=== PATIENT | male | born 1945 | race Asian ===

== ENCOUNTER 2020-02-22 14:36 | Inpatient (IN) | payer OTHER ==
[~2020-02-22] VITALS: Ht 175.3 cm; Wt 71.2 kg
[~2020-02-22 14:36] MED LIST: Acetaminophen 500mg (ES) tab ORAL ONE; Neosporin Oint Ud Pkt TOP ONE; Tetanus/Diptheria/Pertussis IM ONE
[2020-02-22 14:45] VITALS: BP 151/77
--- NOTE | 2020-02-22 14:45 | NUR ---
ED Nurse Note: Patient KATALINA LEVY from street c/o S/P ground level fall. Per EMS, pt fell on his knees and a bystander called 911. Pt is noted with skin abrasion on right hand and right knee. Pt appears to be confused. AAOx2, verbally responsive. Serbian speaking only. No acute distress. Afebrile. Pt placed on cardiac rehab nurse. ERMD at bedside.
--- NOTE | 2020-02-22 14:50 | NUR ---
ED Nurse Note: IV line established. Blood, urine specimen and Covid swab collected and sent to lab.
--- NOTE | 2020-02-22 14:50 | Emergency Room Report ---
History of Present Illness General Chief Complaint: Altered Mental Status Source: Patient, Family Member, EMS Present Illness HPI Patient was found altered on the streets. He knows his name but is confused. He has some cuts on his right hand. They state he has no fever however he feels warm to the touch. Accu-Chek was 142. Apparently he has had a mild cough. He denies nausea, vomiting or diarrhea. He denies dysuria. He is uncertain when his last tetanus shot was. He denies medical problems or taking medications regularly. He denies pain at this time. EKG done in the field shows right bundle branch block but ST depression is fairly significant septally. Additional history is obtained from his . Please see medical decision making. Allergies: Coded Allergies: No Known Allergies (Unverified , 02/22/20) Patient History Limited by: medical condition - patient with dementia Past Medical History: see triage record Social History: Denies: smoking, alcohol use, drug use Social History Narrative Reviewed Nursing Documentation: PMH: Agreed; PSxH: Agreed Nursing Documentation-PMH Past Medical History: No Stated History Review of Systems All Other Systems: negative except mentioned in HPI - patient with dementia Physical Exam Vital Signs Date Time Temp Pulse Resp B/P (MAP) Pulse Ox O2 Delivery O2 Flow Rate FiO2 02/22/20 14:45 118 24 Room Air 02/22/20 14:45 98.8 151/77 100 Sp02 EP Interpretation: reviewed, normal General Appearance: thin, other - Week Head: normocephalic, atraumatic Eyes: bilateral eye normal inspection, bilateral eye PERRL, bilateral eye EOMI ENT: other - Mask Neck: full range of motion, supple Respiratory: chest non-tender, lungs clear, other - Slightly tachypneic Cardiovascular #1: tachycardia Cardiovascular #2: 2+ radial (L) Gastrointestinal: non tender, soft, scaphoid Musculoskeletal: back normal, normal range of motion Neurologic: mattress stripper III-XII nml as tested, oriented - X2, sensory intact, cerebellar normal, motor weakness - Diffuse Psychiatric: mood/affect normal Skin: warm/dry, abrasion - Right hand Procedures Critical Care Time Critical Care Time Total Critical Care Time: 90 min bedside evaluation and treatment excludes procedures (EKG). Reason for critical care: NSTEMI, sepsis, UTI, additional history from , re- evaluations, alkalinization of urine, non-violent restraints and evaluation Possible complications: hypotension, hypertension, [place], shock, arrhythmias, metabolic acidosis, end organ damage, respiratory failure. Interventions: aspirin, antibiotics, fluids, alkalinization of urine, treatment of NSTEMI Course: Patient presented with altered level of consciousness. Evaluation led to diagnosis of sepsis from urinary source. Treatment with hydration ration and antibiotics. Positive troponin treated with aspirin initially. Later also treated with Lovenox, nitro paste, metoprolol. Sepsis reevaluation with improvement. Alternate history obtained from . Renal failure and elevated CK treated with alkalinization. Antibiotics broadened. Reevaluation is patient pulling out IV and noncompliant with care. Non-violent restraints applied. Consultations: nursing staff, EMS, family, admitting physician, HMO Performed by: Dr. Mccormack Tolerated well condition = serious Medical Decision Making Diagnostic Impression: Primary Impression: Altered mental status Qualified Codes: R41.82 - Altered mental status, unspecified Additional Impressions: Acute renal failure Qualified Codes: N17.9 - Acute kidney failure, unspecified NSTEMI (non-ST elevated myocardial infarction) UTI (urinary tract infection) Qualified Codes: N39.0 - Urinary tract infection, site not specified Rhabdomyolysis Sepsis Qualified Codes: A41.9 - Sepsis, unspecified organism; R65.20 - Severe sepsis without septic shock ER Course Patient presents with altered level of consciousness, tachycardia and possible cough. Differential includes COVID-19, acute myocardial infarction, head injury or bleed, electrolyte imbalance including dehydration, hypothyroidism, rhabdomyolysis amongst others. Evaluation with EKG, chest x-ray, CT of the head and labs included COVID-19 testing. Treatment with IV hydration, tetanus, Neosporin, Tylenol. EKG sinus tachycardia rate 106 with right bundle branch block. This is some improved from the EKG done in the field. Called for + troponin. Aspirin ordered. Consider heparin if negative CT. here. She states the patient has a history of dementia. He has had this for a year and is taking medication for this. He also has a history of hypertension and takes some medication twice a day. According to her he appears to be baseline at this time. Sepsis re-evaluation: HR improved. Good cap fill. Adding gentamycin. Mentation unchanged. Elevated CK. Alkalinizing urine with bicarb. Patient pulling out IVs. Non-violent restraints ordered. Lovenox, metoprolol ordered for NSTEMI. Contact Dr. Marcial for admission. Discussed with HMO. Laboratory Tests Test 02/22/20 14:45 02/22/20 15:10 02/22/20 15:45 02/22/20 16:10 White Blood Count 13.8 K/UL (4.8-10.8) H Red Blood Count 4.00 M/UL (4.70-6.10) L Hemoglobin 13.2 G/DL (14.2-18.0) L Hematocrit 37.3 % (42.0-52.0) L Mean Corpuscular Volume 93 FL (80-99) Mean Corpuscular Hemoglobin 33.1 PG (27.0-31.0) H Mean Corpuscular Hemoglobin Concent 35.5 G/DL (32.0-36.0) Red Cell Distribution Width 11.1 % (11.6-14.8) L Platelet Count 192 K/UL (150-450) Mean Platelet Volume 4.8 FL (6.5-10.1) L Neutrophils (%) (Auto) 77.8 % (45.0-75.0) H Lymphocytes (%) (Auto) 11.7 % (20.0-45.0) L Monocytes (%) (Auto) 10.0 % (1.0-10.0) Eosinophils (%) (Auto) 0.0 % (0.0-3.0) Basophils (%) (Auto) 0.5 % (0.0-2.0) Prothrombin Time 11.1 SEC (9.30-11.50) Prothrombin Time INR 1.0 (0.9-1.1) Activated Partial Thromboplast Time 24 SEC (23-33) Sodium Level 146 MMOL/L (136-145) H Potassium Level 4.0 MMOL/L (3.5-5.1) Chloride Level 108 MMOL/L (98-107) H Carbon Dioxide Level 23 MMOL/L (21-32) Anion Gap 15 mmol/L (5-15) Blood Urea Nitrogen 52 mg/dL (7-18) H Creatinine 3.0 MG/DL (0.55-1.30) H Estimated Glomerular Filtration Rate 20.5 mL/min (>60) Glucose Level 139 MG/DL (74-106) H Lactic Acid Level 4.50 mmol/L (0.4-2.0) H 2.60 mmol/L (0.66-2.22) H Calcium Level 9.0 MG/DL (8.5-10.1) Magnesium Level 2.4 MG/DL (1.8-2.4) Ferritin 160 NG/ML (8-388) Total Bilirubin 1.9 MG/DL (0.2-1.0) H Direct Bilirubin 0.3 MG/DL (0.0-0.3) Aspartate Amino Transferase (AST) 177 U/L (15-37) H Alanine Aminotransferase (ALT) 45 U/L (12-78) Alkaline Phosphatase 57 U/L (46-116) Lactate Dehydrogenase 338 U/L (81-234) H Total Creatine Kinase 7559 U/L (26-308) H Troponin I 0.122 ng/mL (0.000-0.056) C-Reactive Protein, Quantitative 2.2 mg/dL (0.00-0.90) H Pro-B-Type Natriuretic Peptide 1156 pg/mL (0-125) H Total Protein 7.7 G/DL (6.4-8.2) Albumin 4.1 G/DL (3.4-5.0) Globulin 3.6 g/dL Albumin/Globulin Ratio 1.1 (1.0-2.7) Lipase 107 U/L (73-393) Thyroid Stimulating Hormone (TSH) 0.704 uiU/mL (0.358-3.740) Urine Color Yellow Urine Appearance Slightly cloudy Urine pH 5 (4.5-8.0) Urine Specific [place] 1.025 (1.005-1.035) Urine Protein 2+ (NEGATIVE) H Urine Glucose (UA) Negative (NEGATIVE) Urine Ketones 1+ (NEGATIVE) H Urine Blood 5+ (NEGATIVE) H Urine Nitrite Negative (NEGATIVE) Urine Bilirubin 1+ (NEGATIVE) H Urine Ictotest Negative (NEGATIVE) Urine Urobilinogen 1 MG/DL (0.0-1.0) H Urine Leukocyte Esterase 1+ (NEGATIVE) H Urine RBC 15-20 /HPF (0 - 0) H Urine WBC 5-10 /HPF (0 - 0) H Urine Squamous Epithelial Cells Occasional /LPF Urine Bacteria Moderate /HPF (NONE) H Urine Granular Casts 0-2 /LPF (NONE) H Urine Opiates Screen Negative (NEGATIVE) Urine Barbiturates Screen Negative (NEGATIVE) Phencyclidine (PCP) Screen Negative (NEGATIVE) Urine Amphetamines Screen Negative (NEGATIVE) Urine Benzodiazepines Screen Negative (NEGATIVE) Urine Cocaine Screen Negative (NEGATIVE) Urine Marijuana (THC) Screen Negative (NEGATIVE) D-Dimer 0.66 mg/L FEU (0.00-0.49) H EKG Diagnostic Results Rate: normal Rhythm: NSR ST Segments: no acute changes - Right bundle branch block Rhythm Strip Diag. Results EP Interpretation: yes Rhythm: no PVC's, no ectopy, other - Sinus tachycardia Chest X-Ray Diagnostic Results Chest X-Ray Diagnostic Results : Chest X-Ray Ordered: Yes # of Views/Limited/Complete: 1 View Indication: Other EP Interpretation: Yes Interpretation: no consolidation, no effusion, no pneumothorax, other - atelectasis Impression: Other Electronically Signed by: Electronically signed by Alber Mccormack MD CT/MRI/US Diagnostic Results CT/MRI/US Diagnostic Results : Imaging Test Ordered: Head Impression 1. No acute intracranial findings. 2. Mild periventricular white matter hypodensities, likely related to chronic small vessel disease changes. 3. 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 4. Generalized cerebral parenchymal volume loss, likely age-related. Last Vital Signs Date Time Temp Pulse Resp B/P (MAP) Pulse Ox O2 Delivery O2 Flow Rate FiO2 02/23/20 00:00 97.7 111 22 130/95 (107) 99 02/22/20 21:15 Room Air Status: improved Disposition: ADMITTED INPATIENT Condition: Serious Alber Mccormack MD February 22, 2020 14:50
--- NOTE | 2020-02-22 15:00 | NUR ---
ED Nurse Note: Placed patient's money (total $3400) and placed in safe. Record valuables [facility] # [id number]. Placed copy in his chart and wallet.
--- NOTE | 2020-02-22 15:04 | NUR ---
ED Nurse Note: [employer] contacted family member (daughter) Zachery Cruz @ [phone] and neighbor, Charisma Srini @ [phone].
--- NOTE | 2020-02-22 15:06 | NUR ---
ED Nurse Note: Pt was taken to CT via breezy, accompanied by a tech.
[2020-02-22 15:11] LABS: BASOPHILS % (AUTO) 0.5 % (0.0-2.0); HEMATOCRIT 37.3 % (42.0-52.0); HEMOGLOBIN 13.2 G/DL (14.2-18.0); LYMPHOCYTES % (AUTO) 11.7 % (20.0-45.0); MEAN CORPUSCULAR VOLUME 93 FL (80-99); NEUTROPHILS % (AUTO) 77.8 % (45.0-75.0); PLATELET COUNT 192 K/UL (150-450); RED CELL DISTRIBUTION WIDTH 11.1 % (11.6-14.8); WHITE BLOOD COUNT 13.8 K/UL (4.8-10.8)
--- NOTE | 2020-02-22 15:20 | NUR ---
ED Nurse Note: Pt returned from CT, not in any distress.
[2020-02-22 15:22] LABS: ANION GAP 15 mmol/L (5-15); BLOOD UREA NITROGEN 52 mg/dL (7-18); CARBON DIOXIDE 23 MMOL/L (21-32); CHLORIDE 108 MMOL/L (98-107); SODIUM 146 MMOL/L (136-145)
[2020-02-22 15:27] LABS: APPEARANCE,URINE SLIGHTLY CLOUDY; BILIRUBIN, URINE 1+ (NEGATIVE); GLUCOSE, URINE (UA) NEGATIVE (NEGATIVE); KETONES,URINE 1+ (NEGATIVE); LEUKOCYTE ESTERASE ,URINE 1+ (NEGATIVE); NITRITE,URINE NEGATIVE (NEGATIVE); PH,URINE 5 (4.5-8.0); PROTEIN,URINE 2+ (NEGATIVE); UROBILINOGEN,URINE 1 MG/DL (0.0-1.0)
[2020-02-22 15:40] LABS: ALANINE AMINOTRANSFERASE 45 U/L (12-78); ALBUMIN 4.1 G/DL (3.4-5.0); ALBUMIN/GLOBULIN RATIO 1.1 (1.0-2.7); ALKALINE PHOSPHATASE 57 U/L (46-116); ASPARTATE AMINO TRANSFERASE 177 U/L (15-37); BILIRUBIN,TOTAL 1.9 MG/DL (0.2-1.0); FERRITIN 160 NG/ML (8-388); LACTATE DEHYDROGENASE 338 U/L (81-234)
[2020-02-22 15:45] LABS: COLOR,URINE YELLOW
[2020-02-22 15:55] LABS: CREATINE KINASE 7559 U/L (26-308)
[2020-02-22 15:56] LABS: BILIRUBIN,DIRECT 0.3 MG/DL (0.0-0.3)
[2020-02-22] MEDS ORDERED: cefTRIAXone 1 GM in NS 55 ML IVPB ONE (16:00)
[2020-02-22] MEDS ORDERED: Nitroglycerin 2% oint pkt TOPIC ONE (16:00)
[2020-02-22] MEDS ORDERED: Aspirin Baby 81mg ORAL ONE (16:00)
--- NOTE | 2020-02-22 16:47 | Diagnostic Imaging Report ---
EXAM: CT Head Without Intravenous Contrast CLINICAL HISTORY: ALOC TECHNIQUE: Axial computed tomography images of the head/brain without intravenous contrast. Coronal reformatted images were obtained and reviewed. CTDI is 53.40 mGy and DLP is 1152.40 mGy-cm. One or more of the following dose reduction techniques were used: automated exposure control, adjustment of the mA and/or kV according to patient size, use of iterative reconstruction technique. COMPARISON: No relevant prior studies available. FINDINGS: Brain: Generalized parenchymal volume loss, likely age-related. Mild periventricular white matter hypodensities. 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 No evidence of acute intracranial hemorrhage. No mass effect or midline shift. Ventricles: Unremarkable. No ventriculomegaly. Bones/joints: Unremarkable. No acute fracture. Soft tissues: Unremarkable. Sinuses: Unremarkable as visualized. No acute sinusitis. Mastoid air cells: Unremarkable as visualized. No mastoid effusion. Vascular: Atherosclerotic calcifications of bilateral vertebral arteries and the cavernous portions of bilateral ICAs. IMPRESSION: 1. No acute intracranial findings. 2. Mild periventricular white matter hypodensities, likely related to chronic small vessel disease changes. 3. 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 4. Generalized cerebral parenchymal volume loss, likely age-related.
--- NOTE | 2020-02-22 16:51 | Diagnostic Imaging Report ---
EXAM: XR Chest, 1 View CLINICAL HISTORY: ALOC TECHNIQUE: Frontal view of the chest. COMPARISON: No relevant prior studies available. FINDINGS: Lungs: Subsegmental atelectasis in the medial lung bases. The lungs are otherwise clear. Pleural space: Unremarkable. The costophrenic angles are sharp. No visible pneumothorax. Heart: Unremarkable. No cardiomegaly. Mediastinum: Unremarkable. Bones/joints: Unremarkable. Vasculature: Atherosclerotic calcifications are noted within the aortic arch. Tubes, lines and devices: Telemetry leads overlie the thorax. IMPRESSION: Subsegmental atelectasis in the medial lung bases.
[2020-02-22 17:00] VITALS: BP 150/76
[2020-02-22] MEDS ORDERED: Enoxaparin 80mg Inj SUBQ STA (18:24)
[2020-02-22] MEDS ORDERED: Metoprolol Tartrate 5mg/5ml Inj IVP STA (18:24)
[2020-02-22 18:29] VITALS: BP 165/89
[2020-02-22] MEDS ORDERED: LOSARTAN POTASS50 MG ORAL (18:41)
[2020-02-22] MEDS ORDERED: AMLODIPINE BESYL5 MG ORAL (18:41)
[2020-02-22] MEDS ORDERED: Sodium Bicarbonate 100 ML in D5W 1000ml 1,000 ML IV SCH (18:45)
--- NOTE | 2020-02-22 19:12 | NUR ---
HAND-OFF: Report given to Kristen LANTIGUA.
--- NOTE | 2020-02-22 19:13 | NUR ---
ED Nurse Note: Received report from RHINA Valladares. Patient in bed, no acute distress noted.
--- NOTE | 2020-02-22 19:20 | NUR ---
ED Nurse Note: pt home meds in ED patient medication box, ticket # [id number]
[2020-02-22 19:34] VITALS: BP 130/64
[2020-02-22] MEDS ORDERED: Sodium Bicarbonate 50ml Carp ONE (20:30)
[2020-02-22] MEDS: Sodium Bicarbonate 100 ML in D5W 1000ml 1,000 ML IV SCH ×3 (20:32→21:40)
--- NOTE | 2020-02-22 21:00 | NUR ---
ED Nurse Note: Sodium bicarb 100ml override in pyxis and mixed with D5 as ordered, first bag is running at this time. No need for second order. Spoke with pharmacy, pharmacy noted to waste medication and undo on eMAR.
--- NOTE | 2020-02-22 21:04 | NUR ---
ED Nurse Note: Report given to RHINA Cavazos in tele.
--- NOTE | 2020-02-22 21:15 | NUR ---
TRANSFER TO FLOOR: Patient transferred to telemetry as ordered, per ERMD. Report given to RHINA Cavazos. Patient transported via gurney on ACLS protocol on tapper operator accompanied by 1 RN and senior quality technician in stable condition.
[2020-02-22 21:30] VITALS: BP 165/100
--- NOTE | 2020-02-22 21:30 | NUR ---
NURSE NOTES: Received report form Lilly Leyva from brought up from ER- pt. in bed awake- appears to be agitated- trying to pull on devices and trying to climb out of bed, pt. appears to be A/O x's1 to name- appears to be confused, awake overnight monitor placed multiple times as pt. is trying to remove monitor, VS taken full body assessment done- Skin appears to be intact- Rt. hand abrasion noted, pt. appears to be sating well on room air at 98%- no distress noted, pt. is incontinent and refusing to have condom cath placed, Pt. has rt. AC 20G intact and patent- pt. has LFA 18G- but appears to be leaking- as pt. pulled on IV- will remove, will continue to monitor pt. and with plan of care. Addendum: 02/23/20 at 0132 by JUAN MCLEOD RN RN pt. is Danish speaking- Danish nurse Lane tried translating- but pt. not making sense- but able to name self.
--- NOTE | 2020-02-22 22:08 | NUR ---
NURSE NOTES: Left message for DR. Marcial,for admission orders- awaiting for call back from doctor.
--- NOTE | 2020-02-22 22:10 | NUR ---
NURSE NOTES: received orders from DR. Marcial- will carry out orders and continue home meds as ordered.
--- NOTE | 2020-02-22 22:26 | NUR ---
NURSE NOTES: left message for DR. Marcial pt. appears to be very agitated- removed bilateral soft wrist restraints and walked out of room- pt. is a PUI for rule out Covid. Gait noted to be unsteady- awaiting for call back from doctor
--- NOTE | 2020-02-22 23:26 | NUR ---
NURSE NOTES: Left message again for DR. Marcial as pt. is very agitated trying to climb out of bed- awaiting for call back from doctor.
[2020-02-22] MEDS: Piperacillin/Tazobactam 3.375 GM in NS 110 ML IVPB SCH (23:54)
[2020-02-23] VITALS: BP 130/95
--- NOTE | 2020-02-23 | NUR ---
NURSE NOTES: bilateral wrist restraints removed- skin intact and pulses palpable- oral care provided- repositioned and turned pt.- will continue to monitor pt. and with plan of care.
--- NOTE | 2020-02-23 01:32 | NUR ---
NURSE NOTES: pt. appears to be resting comfortably- no distress noted
[2020-02-23 02:32] LABS: BASOPHILS % (AUTO) 0.5 % (0.0-2.0); EOSINOPHILS % (AUTO) 0.1 % (0.0-3.0); HEMATOCRIT 34.9 % (42.0-52.0); HEMOGLOBIN 12.5 G/DL (14.2-18.0); LYMPHOCYTES % (AUTO) 13.5 % (20.0-45.0); MEAN CORPUSCULAR VOLUME 93 FL (80-99); MONOCYTES % (AUTO) 13.3 % (1.0-10.0); NEUTROPHILS % (AUTO) 72.7 % (45.0-75.0); PLATELET COUNT 157 K/UL (150-450); RED BLOOD COUNT 3.74 M/UL (4.70-6.10); RED CELL DISTRIBUTION WIDTH 11.3 % (11.6-14.8); WHITE BLOOD COUNT 13.1 K/UL (4.8-10.8)
[2020-02-23 02:50] LABS: CHOLESTEROL 127 MG/DL (< 200); HDL CHOLESTEROL 57 MG/DL (40-60); TRIGLYCERIDES 84 MG/DL (30-150)
[2020-02-23 02:57] LABS: ALANINE AMINOTRANSFERASE 44 U/L (12-78); ALBUMIN 3.3 G/DL (3.4-5.0); ALBUMIN/GLOBULIN RATIO 1.1 (1.0-2.7); ALKALINE PHOSPHATASE 55 U/L (46-116); ANION GAP 10 mmol/L (5-15); ASPARTATE AMINO TRANSFERASE 243 U/L (15-37); BILIRUBIN,TOTAL 1.9 MG/DL (0.2-1.0); BLOOD UREA NITROGEN 29 mg/dL (7-18); CALCIUM 8.4 MG/DL (8.5-10.1); CARBON DIOXIDE 29 MMOL/L (21-32); CHLORIDE 109 MMOL/L (98-107); CREATINE KINASE > 10000 U/L (26-308); CREATININE 1.3 MG/DL (0.55-1.30); PHOSPHORUS 2.4 MG/DL (2.5-4.9); POTASSIUM 3.7 MMOL/L (3.5-5.1); SODIUM 148 MMOL/L (136-145)
--- NOTE | 2020-02-23 03:24 | NUR ---
NURSE NOTES: left message for DR. street- regarding critical value- patients Troponin trending up- awaiting for call back from doctor.
[2020-02-23 03:32] LABS: BILIRUBIN,DIRECT 0.3 MG/DL (0.0-0.3)
[2020-02-23 04:00] VITALS: BP 137/73
--- NOTE | 2020-02-23 04:29 | Consultation ---
DATE OF CONSULTATION: 02/22/2020 CARDIOLOGY CONSULTATION CONSULTING PHYSICIAN: Alber Kirk MD REQUESTING PHYSICIAN: Ruben Marcial MD REASON FOR CONSULTATION: Elevated troponin level. HISTORY OF PRESENT ILLNESS: This is a 74-year-old Khmer male. He was found on the street confused, oriented only to his name. He apparently suffered some lacerations to his right hand although he does not know how. He complained of some coughing and congestion. He did not have any other detailed history. There was no complaint of chest pain or shortness of breath. He was seen in the emergency room. I have been asked to assist with cardiovascular care. ALLERGIES: None. MEDICATIONS: Prior to admission, unknown. PAST MEDICAL HISTORY: Otherwise, not available. He denies smoking, alcohol or substance abuse, but reliability of his stated information is poor. PHYSICAL EXAMINATION: VITAL SIGNS: In the emergency room, blood pressure 151/77, pulse 118, respiratory rate 24, afebrile. HEENT: Oropharynx, clear. Conjunctivae pink. Sclerae are anicteric. NECK: Supple. LUNGS: Clear. CARDIAC: Regular rhythm. Rapid rate. Normal S1, S2 with no murmur. ABDOMEN: Soft. EXTREMITIES: There is no edema. Right hand with dressing noted. LABORATORY AND DIAGNOSTIC DATA: EKG reveals sinus rhythm, right bundle-branch block, subtle ST depression. Troponin is 0.120. Natriuretic peptide is 1156. Sodium 146, potassium 4, bicarb 23, BUN 52, creatinine 3. CK is 7500. White count 13.8, hemoglobin 13.2. IMPRESSION: 1. Hypovolemia. 2. Dehydration. 3. Acute myocardial ischemia. 4. Rhabdomyolysis. 5. Possible COVID-19 infection. 6. Acute renal failure. PLAN: 1. Cardiac monitoring. 2. DVT prophylaxis. 3. Beta-blockade. 4. Aggressive hydration. 5. COVID-19 swab. 6. Isolation. 7. Anti-platelet therapy. 8. Skin care. 9. Follow up lab studies. Alber Kirk M.D. DR: TRINY JOB#: [id number] CC:
[2020-02-23] MEDS: Vancomycin 1.25gm/NS Premix q24h IVPB SCH (04:34)
--- NOTE | 2020-02-23 05:30 | NUR ---
NURSE NOTES: bilateral wrist restraints removed- skin intact and pulses palpable- oral care provided- repositioned and turned pt.-bed bath given and linens changed- will continue to monitor pt. and with plan of care.
--- NOTE | 2020-02-23 06:20 | NUR ---
NURSE NOTES: per dr. Edwin engel to put orders for sitter and order Ativan 1mg Q4hrs prn agitation- orders carried out.
[2020-02-23] MEDS ORDERED: LORazepam Inj 2mg/ml 1ml IV PRN (06:30)
--- NOTE | 2020-02-23 07:03 | NUR ---
HAND-OFF: Report given to Lilly Pantoja pt. remains stable and no signs of distress noted. Nurse aware to f/u with DR. Kirk regarding Troponin trending up/ EKG done am and abnormal am labs.
--- NOTE | 2020-02-23 07:35 | NUR ---
NURSE NOTES: Received report from RHINA Hurd. Patient in bed resting, no active s/s cardiac, respiratory distress noticed at this time. Endorsed sitter order, Ketan is coming. At this time, bilateral wrist restraints, cap refill <3 sec, able to move. IVF running as prescribed rate. Bed in lowest position, side rails upx2, call light within reach, bed alarm on. Will continue to monitor.
[2020-02-23 08:00] VITALS: BP 111/69
[2020-02-23] MEDS: Piperacillin/Tazobactam 3.375 GM in NS 110 ML IVPB SCH ×2 (08:51→16:56)
[2020-02-23] MEDS: Aspirin Baby 81mg ORAL SCH (08:51)
[2020-02-23] MEDS: Heparin 5000 units/ml inj SUBQ SCH ×2 (08:53→21:45)
[2020-02-23] MEDS ORDERED: Losartan 50mg tab ORAL SCH (09:00)
--- NOTE | 2020-02-23 10:20 | NUR ---
*-* NO INSURANCE INFORMATION IN THE BAR UNABLE TO SEND CLINICALS OR REVIEWS *-*
--- NOTE | 2020-02-23 10:42 | NUR ---
CASE MANAGEMENT:REVIEW 74 YR OLD MALE BIBA FROM STRE[address] [facility]; BYSTANDER CALLED 911. FALL. CONFUSED SI: AMS. ACUTE RENAL FAILURE. RHABDO. UTI. NSTEMI 98.8 118 24 151/77 100% ON RA WBC+13.8 D-DIMER+0.66 BUN+52 CR+3.0 TROPONIN(+)0.122 TCK+7559 IS:1L NS BOLUS IV ROCEPHIN ASA PO IV GENTAMICIN LOVENOX SQ IV METOPROLOL IV NAHCO3 COVID [address] HEAD CHEST XRAY BLOOD CX : TO TELEMETRY DCP; SOCIAL SERVICE CONSULT
[2020-02-23 11:53] LABS: ALANINE AMINOTRANSFERASE 50 U/L (12-78); ALBUMIN 3.4 G/DL (3.4-5.0); ALBUMIN/GLOBULIN RATIO 1.1 (1.0-2.7); ALKALINE PHOSPHATASE 55 U/L (46-116); ANION GAP 10 mmol/L (5-15); ASPARTATE AMINO TRANSFERASE 250 U/L (15-37); BILIRUBIN,TOTAL 2.1 MG/DL (0.2-1.0); BLOOD UREA NITROGEN 20 mg/dL (7-18); CALCIUM 8.5 MG/DL (8.5-10.1); CARBON DIOXIDE 27 MMOL/L (21-32); CHLORIDE 107 MMOL/L (98-107); POTASSIUM 3.8 MMOL/L (3.5-5.1); SODIUM 144 MMOL/L (136-145)
[2020-02-23 12:00] VITALS: BP 152/76
[2020-02-23 12:05] LABS: BILIRUBIN,DIRECT 0.3 MG/DL (0.0-0.3)
--- NOTE | 2020-02-23 14:00 | NUR ---
NURSE NOTES: Dr. Kirk made aware patient HR fluctuate, during the night HR 110s, after morning med, amlodipine, metoprolol, HR 50s, junctional. No new order received at this time. Will continue to monitor.
--- NOTE | 2020-02-23 15:30 | NUR ---
NURSE NOTES: Paged Dr. Marcial regarding right hand laceration, swallowen. Per MD, consult with Dr. Chew. Order noted, entered, carried out. Will continue to monitor.
[2020-02-23 16:00] VITALS: BP 155/81
[2020-02-23] MEDS: Potassium Chloride 20 MEQ in 1/2 NS 1000ml 1,000 ML IV SCH (16:56)
--- NOTE | 2020-02-23 16:56 | NUR ---
*-* INSURANCE *-* ALL CLINICALS AND REVIEWS HAVE BEEN FAXED TO: [facility] Ref#[id number] # [phone] fax#[phone]
--- NOTE | 2020-02-23 17:28 | NUR ---
NURSE NOTES: Per Dr. Rodríguez, change ativan to haldol IM 5mg q 6h prn for agitation. Order noted, entered, carried out. Will continue to monitor.
--- NOTE | 2020-02-23 17:44 | Consultation ---
DATE OF CONSULTATION: 02/23/2020 INFECTIOUS DISEASES CONSULTATION CONSULTING PHYSICIAN: Makenna Figueroa MD. REFERRING PHYSICIAN: Ruben Marcial MD. REASON FOR CONSULTATION: To rule out COVID-19 pneumonia HISTORY OF PRESENTING ILLNESS: This is a 74-year-old gentleman with unknown past medical history, who comes in with cough and congestion. There was a concern for COVID-19 pneumonia and an Infectious Diseases consultation has been obtained for antibiotics. PAST MEDICAL HISTORY: Unknown. FAMILY HISTORY: Unknown. REVIEW OF SYSTEMS: Unable to obtain currently. MEDICATIONS: As an inpatient he is on aspirin, subcutaneous heparin, Protonix, amlodipine, metoprolol, lorazepam, IV vancomycin, Zosyn, Tylenol, Mylanta, clonidine. ALLERGIES: No known drug allergies. PHYSICAL EXAMINATION: VITAL SIGNS: Temperature of 97.3, T-max of 98.8, pulse of 83, respiratory rate 20, blood pressure 111/69, O2 saturation of 95% on 2 liters of oxygen. Examination deferred due to possibility of COVID-19. LABORATORY AND DIAGNOSTIC DATA: White count 13.1, hemoglobin 12.5, hematocrit 34.9, MCV 93, platelet count of 157. Sodium 144, potassium 3.8, chloride 107, bicarb 27, BUN 20, creatinine 1, glucose 111, calcium 8.5. Total bilirubin 2.1, direct bilirubin 0.3, AST , ALT 50, alkaline phosphatase 55. CK more than 10,000. Troponin 0.173. Total protein 6.6, albumin 3.4. UA showing 5 to 10 white cells. Urine cultures are negative. Chest x-ray is showing subsegmental atelectasis in the lung bases. CT head showing no acute intracranial findings, mild periventricular white matter hypodensity, lacunar infarcts noted. ASSESSMENT: This is a 74-year-old gentleman with unknown past medical history who comes in with cough and congestion would be concern. 1. Regarding COVID-19 pneumonia. 2. Myocardial infarction. 3. Renal failure. PLAN: 1. We will start the patient on ceftriaxone. 2. We will continue isolation. 3. We will follow up on COVID-19 results. I would like to thank, Dr. Marcial for this consultation. Makenna Figueroa M.D. DR: Ilda JOB#: [id number] CC: Ruben Marcial M.D.; Fax#: [phone]
--- NOTE | 2020-02-23 19:48 | NUR ---
HAND-OFF: Report given to RHINA Kulkarni. Endorsed plan of care.
--- NOTE | 2020-02-23 19:50 | NUR ---
NURSE NOTES: rECEIVED PT FROM RHINA Lozano. PT ASLEEP. BED IN LOWEST POSITION. CALL LIGHT WITHIN REACH. WILL CONTINUE TO MONITOR.
--- NOTE | 2020-02-23 19:59 | History and Physical Report ---
DATE OF ADMISSION: 02/22/2020 REASON FOR ADMISSION: Toxic metabolic encephalopathy, rhabdomyolysis, hypernatremia, acute renal failure, possible non-STEMI. HISTORY: This is a 74-year-old male, very agitated, very confused, presented through the emergency room. The patient was found on the street confused, only oriented to name. At present, the patient is agitated, requiring restraints. Further history is difficult to obtain. Emergency room visit reviewed. Cardiology and Renal called. PAST MEDICAL HISTORY: Not available at this time. MEDICATIONS: Not available. ALLERGIES: Not available. FAMILY HISTORY: Not available. PHYSICAL EXAMINATION: GENERAL: An agitated male. VITAL SIGNS: Reviewed, otherwise stable. Saturation 97% on 2 liters. HEENT: Negative. NECK: Supple. LUNGS: Moderate breath sounds. CARDIAC: S1, S2. Regular rate and rhythm. ABDOMEN: Soft. EXTREMITIES: Mild edema. LABORATORY DATA: Reviewed. Sodium 148. CK is greater than 10,000. Troponin 0.173. Albumin 3.3. White count 13, hemoglobin 12.5, hematocrit 34, platelets 157. IMPRESSION: 1. Hypernatremia. 2. Rhabdomyolysis. 3. Possible non-STEMI. 4. Toxic metabolic encephalopathy. 5. Possible sepsis, unclear at this time. 6. Dehydration. 7. Acute renal failure. RECOMMENDATIONS: 1. Supportive care. 2. Hypotonic fluids. 3. Renal to follow. 4. Follow up CTA. 5. Follow up labs. 6. Blood pressure support. 7. Cardiology evaluation. 8. Follow up cultures. 9. Monitor neurological examination. 10. Ativan p.r.n. and assess for further change in interventions. 11. Await case management to assist in his finding family. Ruben Marcial M.D. DR: Mitali JOB#: [id number] CC:
[2020-02-23 20:00] VITALS: BP 140/71
--- NOTE | 2020-02-23 20:14 | Consultation ---
DATE OF CONSULTATION: 02/23/2020 CONSULTING PHYSICIAN: Darron Ren M.D. REFERRING PHYSICIAN: Ruben Marcila M.D. REASON FOR CONSULTATION: Acute kidney injury and rhabdomyolysis. HISTORY OF PRESENT ILLNESS: Patient is a 74-year-old [place] male, apparently found confused on the streets with some lacerations of his right hand and unable to give an adequate history. He presented with abnormal labs and I adjusted his IV fluids last night. I am unable to get any detailed history. PHYSICAL EXAMINATION: GENERAL: The patient is lying in bed, eyes open, but not interacting. VITAL SIGNS: Temperature 96.9, pulse 58, respiratory rate 18, blood pressure 152/76. HEAD, EYES, EARS, NOSE, AND THROAT: Oral mucosa is slightly dry. Sclerae are nonicteric. LUNGS: Clear. HEART: Regular rhythm. ABDOMEN: Soft. No organomegaly. EXTREMITIES: No edema. There is a dressing in the right hand. NEUROLOGIC: He is confused, disoriented with little interaction, not speaking at this time. LABORATORY AND DIAGNOSTIC DATA: Review of pertinent labs on admission, BUN 52, creatinine 3, sodium 146, potassium 4, chloride 108, CO2 23, glucose 139, lactic acid 4.5 and 2.6, magnesium 2.4. Bilirubin 1.9, direct bilirubin 0.3, AST 177, LDH 338, and a CK of 7559. Troponin 0.122. TSH 0.704. Most recent BUN 20 and creatinine is 1. Bilirubin 2.1 and CK greater than 10,000. Albumin is 3.4. The I and O for the past 24 hours is not recorded. He is incontinent. Imaging with a chest x-ray showed subsegmental atelectasis. A CT brain was done showing no acute intracranial findings, mild periventricular white matter hypodensities, and lacunar infarcts. IMPRESSION: 1. Acute kidney injury, likely from dehydration. 2. Rhabdomyolysis. 3. Proteinuria, possibly from rhabdomyolysis. 4. History of multiple lacunar infarcts. 5. Dementia. 6. Lactic acidosis, rule out sepsis. 7. Incomplete database. PLAN: The patient will continue with vigorous hydration, empiric antibiotics. Watch closely in view of his comorbidities. Darron Ren M.D. DR: Tim JOB#: [id number] CC:
[2020-02-24] VITALS: BP 134/80
[2020-02-24] MEDS: Piperacillin/Tazobactam 3.375 GM in NS 110 ML IVPB SCH ×4 (00:11→23:28)
[2020-02-24] MEDS: Potassium Chloride 20 MEQ in 1/2 NS 1000ml 1,000 ML IV SCH ×4 (00:12→23:35)
[2020-02-24 04:00] VITALS: BP 130/72
--- NOTE | 2020-02-24 04:45 | Consultation ---
DATE OF CONSULTATION: 02/23/2020 HISTORY OF PRESENT ILLNESS: The patient is a 74-year-old male with a history of multiple medical problems including UTI, acute renal failure, rhabdomyolysis, non-ST elevated myocardial infarction, who was admitted to the hospital for medical stabilization. The patient has COVID-19. The patient became agitated and walked down the corridor and went down the stairway. The patient was brought back to the room. He was confused, agitated, and was placed on bilateral soft restraints. PAST PSYCHIATRIC HISTORY: The patient continues with dementia. PAST MEDICAL HISTORY: Unknown. It appears that the patient has a history of possible dementia. ALLERGIES: No known drug allergies. SUBSTANCE ABUSE HISTORY: No known history of illicit drug use or alcohol. MENTAL STATUS EXAMINATION: The patient is awake, confused, and disoriented. Mood is agitated. Affect is flat. Thought process, there is a paucity of thought content. Thought content, no suicidal or homicidal ideation. Cognition is impaired. Insight and judgment are impaired. ASSESSMENT: Grimstead I Dementia. Acute encephalopathy. Grimstead II Deferred. Grimstead III COVID-19. Grimstead IV Low. Grimstead V PLAN: 1. We will start the patient on Zyprexa 2.5 mg at bedtime. 2. Haldol IM p.r.n. 3. Discussed with the nurse. Kevin Rodríguez M.D. DR: JESSE JOB#: [id number] CC:
[2020-02-24] MEDS: Vancomycin 1.25gm/NS Premix q24h IVPB SCH (05:27)
--- NOTE | 2020-02-24 06:29 | Progress Note ---
DATE: 02/23/2020 CARDIOLOGY PROGRESS NOTE SUBJECTIVE: The patient has had some irregular heart beats. He has an underlying bundle-branch block. He has had episodes of sinus bradycardia with first-degree AV block and junctional rhythms. He has been on low-dose beta-mirta. He has remained asymptomatic however with these episodes. PHYSICAL EXAMINATION: VITAL SIGNS: Blood pressure 152/76, heart rate 58, respirations 18, afebrile. LUNGS: Clear. CARDIAC: Regular. Normal S1, S2. A 1/6 systolic murmur at apex. ABDOMEN: Soft. EXTREMITIES: Trace edema. DIAGNOSTIC AND LABORATORY DATA: Echocardiogram reveals normal ejection fraction, mild mitral regurgitation with moderate aortic insufficiency, and normal pulmonary pressures. Chemistry panel, BUN 20, creatinine 1, bicarb 27, sodium 144, potassium 3.8. Troponin 0.167. IMPRESSION: 1. Toxic and metabolic encephalopathies. 2. Acute myocardial ischemia. 3. Rhabdomyolysis. 4. Bradyarrhythmia. 5. Sinus node disease. 6. Hypovolemia and dehydration, improved. PLAN: 1. Decrease beta-mirta dosing. 2. Continue cardiac monitoring. 3. Maintain hydration. 4. Recheck CK and troponin levels. 5. Further cardiovascular workup depending on clinical course. 6. May include pacemaker recommendation. Alber Kirk M.D. DR: LASHAE JOB#: [id number] CC:
--- NOTE | 2020-02-24 07:24 | NUR ---
HAND-OFF: Report given to RHINA Watt. Pt stable.
--- NOTE | 2020-02-24 07:25 | NUR ---
NURSE NOTES:handoff received from RHINA Kulkarni. Patient received sleeping in bed, no acute signs of distress noted. Patient is in bilateral soft wrist restraints. Condom cath is patent and draining, Patient is on room air, breathing even and unlabored. bed in the low and locked position with call light within reach, IV site running 1/2ns +20MEQ KCL @ 125Ml/HR. will continue to monitor patient.
[2020-02-24 07:27] LABS: BASOPHILS % (AUTO) 0.9 % (0.0-2.0); HEMATOCRIT 33.8 % (42.0-52.0); LYMPHOCYTES % (AUTO) 22.3 % (20.0-45.0); MEAN CORPUSCULAR VOLUME 94 FL (80-99); MONOCYTES % (AUTO) 8.5 % (1.0-10.0); NEUTROPHILS % (AUTO) 67.3 % (45.0-75.0); PLATELET COUNT 151 K/UL (150-450); RED BLOOD COUNT 3.61 M/UL (4.70-6.10); RED CELL DISTRIBUTION WIDTH 10.7 % (11.6-14.8); WHITE BLOOD COUNT 6.6 K/UL (4.8-10.8)
[2020-02-24 07:58] LABS: ALANINE AMINOTRANSFERASE 42 U/L (12-78); ALKALINE PHOSPHATASE 48 U/L (46-116); ANION GAP 8 mmol/L (5-15); ASPARTATE AMINO TRANSFERASE 172 U/L (15-37); BLOOD UREA NITROGEN 12 mg/dL (7-18); CALCIUM 8.4 MG/DL (8.5-10.1); CARBON DIOXIDE 28 MMOL/L (21-32); CHLORIDE 107 MMOL/L (98-107); CREATINE KINASE 3077 U/L (26-308); SODIUM 142 MMOL/L (136-145)
[2020-02-24 08:00] VITALS: BP 127/76
--- NOTE | 2020-02-24 08:01 | General Progress Note ---
Assessment/Plan Assessment/Plan: IMPRESSION: 1. Hypernatremia. 2. Rhabdomyolysis. 3. Possible non-STEMI. 4. Toxic metabolic encephalopathy. 5. Possible sepsis, unclear at this time. 6. Dehydration. 7. Acute renal failure. PLAN await labs await resolution of elevated CK maintain hydration cards clearance await caregiver discussion impression, plan, and exam edited and reviewed in detail care discussed with RN Subjective Allergies: Coded Allergies: No Known Allergies (Unverified , 02/22/20) Subjective confused trying to reach family Objective Last 24 Hour Vital Signs Date Time Temp Pulse Resp B/P (MAP) Pulse Ox O2 Delivery O2 Flow Rate FiO2 02/24/20 04:00 58 02/24/20 04:00 97.6 68 19 130/72 (91) 96 02/24/20 00:00 97.2 62 19 134/80 (98) 94 02/24/20 00:00 48 02/23/20 20:00 97.6 59 19 140/71 (94) 96 02/23/20 20:00 85 02/23/20 20:00 Room Air 02/23/20 16:00 97.3 62 18 155/81 (105) 95 02/23/20 16:00 59 02/23/20 12:00 96.9 58 18 152/76 (101) 97 02/23/20 12:00 2.0 02/23/20 12:00 58 02/23/20 09:00 Room Air 02/23/20 08:52 83 111/69 02/23/20 08:52 83 111/69 Intake and Output 02/23/20 02/24/20 19:00 07:00 Intake Total 240 ml Output Total 200 ml Balance 240 ml -200 ml Intake Oral 240 ml Output Urine Total 200 ml # Voids 2 Laboratory Tests 02/23/20 10:00: Sodium Level 144, Potassium Level 3.8, Chloride Level 107, Carbon Dioxide Level 27, Anion Gap 10, Blood Urea Nitrogen 20H, Creatinine 1.0, Estimat Glomerular Filtration Rate > 60, Glucose Level 111H, Calcium Level 8.5, Total Bilirubin 2.1H, Direct Bilirubin 0.3, Aspartate Amino Transf (AST/SGOT) 250H, Alanine Aminotransferase (ALT/SGPT) 50, Alkaline Phosphatase 55, Troponin I 0.173H, Total Protein 6.6, Albumin 3.4, Globulin 3.2, Albumin/Globulin Ratio 1.1 02/23/20 18:00: Troponin I 0.167H 02/24/20 06:50: Sodium Level [Pending], Potassium Level [Pending], Chloride Level [Pending], Carbon Dioxide Level [Pending], Blood Urea Nitrogen [Pending], Creatinine [ Pending], Estimat Glomerular Filtration Rate [Pending], Glucose Level [Pending] , Calcium Level [Pending], Total Bilirubin [Pending], Aspartate Amino Transf ( AST/SGOT) [Pending], Alanine Aminotransferase (ALT/SGPT) [Pending], Alkaline Phosphatase [Pending], Troponin I 0.127H, Total Protein [Pending], Albumin [ Pending], Globulin [Pending], White Blood Count 6.6, Red Blood Count 3.61L, Hemoglobin 12.0L, Hematocrit 33.8L, Mean Corpuscular Volume 94, Mean Corpuscular Hemoglobin 33.1H, Mean Corpuscular Hemoglobin Concent 35.4, Red Cell Distribution Width 10.7L, Platelet Count 151, Mean Platelet Volume 5.4L, Neutrophils (%) (Auto) 67.3, Lymphocytes (%) (Auto) 22.3, Monocytes (%) (Auto) 8.5, Eosinophils (%) (Auto) 1.0, Basophils (%) (Auto) 0.9, Total Creatine Kinase [Pending] Height (Feet): 5 Height (Inches): 9.00 Weight (Pounds): 175 Objective GENERAL: An agitated male. HEENT: Negative. NECK: Supple. LUNGS: Moderate breath sounds. CARDIAC: S1, S2. Regular rate and rhythm. ABDOMEN: Soft. EXTREMITIES: Mild edema. Ruben Marcial MD February 24, 2020 08:01
[2020-02-24 08:09] LABS: BILIRUBIN,DIRECT 0.3 MG/DL (0.0-0.3)
[2020-02-24] MEDS: Aspirin Baby 81mg ORAL SCH (09:55)
[2020-02-24] MEDS: Metoprolol Tartrate 12.5mg TAB ORAL SCH ×2 (09:55→21:00)
[2020-02-24] MEDS: Heparin 5000 units/ml inj SUBQ SCH ×2 (09:57→21:41)
--- NOTE | 2020-02-24 11:01 | Infectious Diseases Prog Note ---
Assessment/Plan Assessment/Plan antibiotics : vancomycin iv, zosyn A 1. r/o COVID 19 pneumonia 2. Myocardial infarction. 3. Renal failure. P 1. continue iv vancomycin, zosyn 2. We will continue isolation. 3. We will follow up on COVID-19 results. Subjective ROS Limited/Unobtainable: Yes Allergies: Coded Allergies: No Known Allergies (Unverified , 02/22/20) Objective Vital Signs Last 24 Hour Vital Signs Date Time Temp Pulse Resp B/P (MAP) Pulse Ox O2 Delivery O2 Flow Rate FiO2 02/24/20 09:55 63 127/76 02/24/20 09:55 63 127/76 02/24/20 09:00 Room Air 02/24/20 08:00 55 02/24/20 08:00 98.1 63 20 127/76 (93) 99 02/24/20 04:00 58 02/24/20 04:00 97.6 68 19 130/72 (91) 96 02/24/20 00:00 97.2 62 19 134/80 (98) 94 02/24/20 00:00 48 02/23/20 20:00 97.6 59 19 140/71 (94) 96 02/23/20 20:00 85 02/23/20 20:00 Room Air 02/23/20 16:00 97.3 62 18 155/81 (105) 95 02/23/20 16:00 59 02/23/20 12:00 96.9 58 18 152/76 (101) 97 02/23/20 12:00 2.0 02/23/20 12:00 58 Height (Feet): 5 Height (Inches): 9.00 Weight (Pounds): 175 Microbiology Date/Time Source Procedure Growth Status 02/22/20 15:10 Urine,Clean Catch Urine Culture - Preliminary NO GROWTH Resulted Laboratory Tests Test 02/23/20 18:00 02/24/20 06:50 Troponin I 0.167 ng/mL (0.000-0.056) 0.127 ng/mL (0.000-0.056) White Blood Count 6.6 K/UL (4.8-10.8) Red Blood Count 3.61 M/UL (4.70-6.10) L Hemoglobin 12.0 G/DL (14.2-18.0) L Hematocrit 33.8 % (42.0-52.0) L Mean Corpuscular Volume 94 FL (80-99) Mean Corpuscular Hemoglobin 33.1 PG (27.0-31.0) H Mean Corpuscular Hemoglobin Concent 35.4 G/DL (32.0-36.0) Red Cell Distribution Width 10.7 % (11.6-14.8) L Platelet Count 151 K/UL (150-450) Mean Platelet Volume 5.4 FL (6.5-10.1) L Neutrophils (%) (Auto) 67.3 % (45.0-75.0) Lymphocytes (%) (Auto) 22.3 % (20.0-45.0) Monocytes (%) (Auto) 8.5 % (1.0-10.0) Eosinophils (%) (Auto) 1.0 % (0.0-3.0) Basophils (%) (Auto) 0.9 % (0.0-2.0) Sodium Level 142 MMOL/L (136-145) Potassium Level 4.0 MMOL/L (3.5-5.1) Chloride Level 107 MMOL/L (98-107) Carbon Dioxide Level 28 MMOL/L (21-32) Anion Gap 8 mmol/L (5-15) Blood Urea Nitrogen 12 mg/dL (7-18) Creatinine 1.0 MG/DL (0.55-1.30) Estimat Glomerular Filtration Rate > 60 mL/min (>60) Glucose Level 89 MG/DL (74-106) Calcium Level 8.4 MG/DL (8.5-10.1) L Total Bilirubin 2.0 MG/DL (0.2-1.0) H Direct Bilirubin 0.3 MG/DL (0.0-0.3) Aspartate Amino Transf (AST/SGOT) 172 U/L (15-37) H Alanine Aminotransferase (ALT/SGPT) 42 U/L (12-78) Alkaline Phosphatase 48 U/L (46-116) Total Creatine Kinase 3077 U/L (26-308) H Total Protein 6.0 G/DL (6.4-8.2) L Albumin 3.0 G/DL (3.4-5.0) L Globulin 3.0 g/dL Albumin/Globulin Ratio 1.0 (1.0-2.7) Current Medications Medications (Trade) Dose Ordered Sig/Sepideh Route PRN Reason Start Time Stop Time Status Last Admin Dose Admin Acetaminophen (Tylenol) 650 mg Q4H PRN ORAL Mild Pain (Pain Scale 1-3) 02/22/20 22:45 03/23/20 22:44 Al Hydroxide/Mg Hydroxide (Mylanta) 30 ml Q4HR PRN ORAL Constipation 02/22/20 22:45 03/23/20 22:44 Amlodipine Besylate (Norvasc) 5 mg DAILY ORAL 02/23/20 09:00 03/24/20 08:59 02/24/20 09:55 Aspirin (ASA) 81 mg DAILY ORAL 02/23/20 09:00 04/08/20 08:59 02/24/20 09:55 Clonidine HCl (Catapres Tab) 0.1 mg EVERY 4 HOURS PRN ORAL SBP>150 02/22/20 22:45 05/22/20 22:44 Haloperidol Lactate (Haldol) 5 mg Q6H PRN IM Agitation 02/23/20 17:30 04/08/20 17:29 Heparin Sodium (Porcine) (Heparin 5000 units/ml) 5,000 units EVERY 12 HOURS SUBQ 02/23/20 09:00 04/08/20 08:59 02/24/20 09:57 Metoprolol Tartrate (Lopressor) 12.5 mg Q12HR ORAL 02/24/20 09:00 05/24/20 08:59 02/24/20 09:55 Olanzapine (ZyPREXA) 2.5 mg BEDTIME ORAL 02/24/20 21:00 04/09/20 20:59 Pantoprazole (Protonix) 40 mg DAILY ORAL 02/23/20 09:00 03/24/20 08:59 02/24/20 09:55 Piperacillin Sod/ Tazobactam Sod 3.375 gm/Sodium Chloride 110 ml @ 27.5 mls/hr Q8H IVPB 02/23/20 00:00 03/01/20 00:00 02/24/20 09:55 Potassium Chloride 20 meq/ Sodium Chloride 1,010 ml @ 125 mls/hr Q8H5M IV 02/23/20 16:00 03/24/20 15:59 02/24/20 10:00 Vancomycin HCl (Vanco rx to dose) 1 ea DAILY PRN MISC Per rx protocol 02/22/20 22:45 03/23/20 22:44 Vancomycin/Sodium Chloride 275 ml @ 184 mls/hr Q24H IVPB 02/23/20 04:30 02/28/20 04:29 02/24/20 05:27 Makenna Figueroa MD February 24, 2020 11:01
--- NOTE | 2020-02-24 11:21 | NUR ---
*-* INSURANCE *-* UPDATED CLINICALS AND REVIEWS HAVE BEEN FAXED TO: [facility] Ref#[id number] # [phone] fax#[phone]
[2020-02-24] MEDS ORDERED: DONEPEZIL HCL5 MG ORAL (11:40)
[2020-02-24 12:00] VITALS: BP 138/75
--- NOTE | 2020-02-24 12:03 | NUR ---
NURSE NOTES:Donepezil hcl 5mg PO added to med recon as informed me that he takes this medication at home.
--- NOTE | 2020-02-24 12:12 | NUR ---
NURSE NOTES:Dr Marcial placed TO/RB order for Donepezil 5mg PO daily.
--- NOTE | 2020-02-24 12:50 | NUR ---
DIRECTOR EPIDEMIOLOGY NOTE Pt received consult for home safety evaluation. Pt presents as A&O 2x. Pt provided verbal consent to contact his , Nneka Cruz [phone]. SOCORRO attempted to call the number but it was disconnected. Per pt, he is ambulatory w/o DMEs. Pt denies recent falls. Per pt, he does not have any children. SOCORRO attempted to call the family member, pt's sister in law Zachery Cruz [phone]. Per Zachery,the 's phone is disconnected d/t delay of payment. Zachery requested if the family could get [facility] information. Per chart review, pt does not have [facility]. Zachery reports pt has hx of Dementia and the has been providing all necessary cares/need. Zachery confirmed pt resides w/ at [address] [place] [id number]. This SOCORRO requested Zachery to ask her sister/pt's to call this SW. Zachery will deliver message to Nneka Cruz. This SW requested the admitting dept if pt can be screened for [facility]. Addendum: 02/25/20 at 1236 by RYAN QUINTANILLA ADD: The verbalized she is able to provide all necessities/needs. The sister in law is willing to provide care as well. The family is willing to provide care for this pt. Pt may be safe to return home w/ sufficient family support.
--- NOTE | 2020-02-24 13:01 | Consultation ---
History of Present Illness General Date patient seen: February 24, 2020 Chief Complaint: Altered Mental Status Present Illness HPI This is a 74 year old male who was found altered on the streets. He knows his name but is confused. He has some cuts on his right hand. They state he has no fever however he feels warm to the touch. Accu-Chek was 142. Apparently he has had a mild cough. He denies nausea, vomiting or diarrhea. He denies dysuria. He is uncertain when his last tetanus shot was. He denies medical problems or taking medications regularly. He denies pain at this time. EKG done in the field shows right bundle branch block but ST depression is fairly significant septally. right hand laceration surgery called to evaluate and assist with care. patient seen, chart reviewed, patient examined. Allergies: Coded Allergies: No Known Allergies (Unverified , 02/22/20) Medication History Scheduled Amlodipine Besylate* (Amlodipine Besylate*), 5 MG ORAL DAILY, (Reported) Donepezil Hcl* (Donepezil Hcl*), 5 MG ORAL DAILY, (Reported) Losartan Potassium* (Losartan Potassium*), 50 MG ORAL DAILY, (Reported) Patient History Limited by: medical condition History Provided By: Medical Record, PMD Healthcare decision maker Resuscitation status Advanced Directive on File Past Medical/Surgical History Past Medical/Surgical History: (1) Acute renal failure (2) Rhabdomyolysis (3) Sepsis (4) UTI (urinary tract infection) (5) NSTEMI (non-ST elevated myocardial infarction) (6) Altered mental status Review of Systems All Other Systems: negative except mentioned in HPI Physical Exam General Appearance: no apparent distress, alert Lines, tubes and drains: peripheral HEENT: mucous membranes moist Neck: normal inspection Respiratory/Chest: normal breath sounds, no respiratory distress, no accessory muscle use Cardiovascular/Chest: regular rhythm Abdomen: soft, no organomegaly, no mass Extremities: normal inspection, inflammation, other Skin Exam: warm/dry Neurologic: alert Last 24 Hour Vital Signs Date Time Temp Pulse Resp B/P (MAP) Pulse Ox O2 Delivery O2 Flow Rate FiO2 02/24/20 12:00 98.3 58 20 138/75 (96) 98 02/24/20 09:55 63 127/76 02/24/20 09:55 63 127/76 02/24/20 09:00 Room Air 02/24/20 08:00 55 02/24/20 08:00 98.1 63 20 127/76 (93) 99 02/24/20 04:00 58 02/24/20 04:00 97.6 68 19 130/72 (91) 96 02/24/20 00:00 97.2 62 19 134/80 (98) 94 02/24/20 00:00 48 02/23/20 20:00 97.6 59 19 140/71 (94) 96 02/23/20 20:00 85 02/23/20 20:00 Room Air 02/23/20 16:00 97.3 62 18 155/81 (105) 95 02/23/20 16:00 59 Intake and Output 02/23/20 02/24/20 19:00 07:00 Intake Total 240 ml 125 ml Output Total 200 ml Balance 240 ml -75 ml Intake Oral 240 ml IV Total 125 ml Output Urine Total 200 ml # Voids 2 Laboratory Tests Test 02/23/20 18:00 02/24/20 06:50 Troponin I 0.167 ng/mL (0.000-0.056) 0.127 ng/mL (0.000-0.056) White Blood Count 6.6 K/UL (4.8-10.8) Red Blood Count 3.61 M/UL (4.70-6.10) L Hemoglobin 12.0 G/DL (14.2-18.0) L Hematocrit 33.8 % (42.0-52.0) L Mean Corpuscular Volume 94 FL (80-99) Mean Corpuscular Hemoglobin 33.1 PG (27.0-31.0) H Mean Corpuscular Hemoglobin Concent 35.4 G/DL (32.0-36.0) Red Cell Distribution Width 10.7 % (11.6-14.8) L Platelet Count 151 K/UL (150-450) Mean Platelet Volume 5.4 FL (6.5-10.1) L Neutrophils (%) (Auto) 67.3 % (45.0-75.0) Lymphocytes (%) (Auto) 22.3 % (20.0-45.0) Monocytes (%) (Auto) 8.5 % (1.0-10.0) Eosinophils (%) (Auto) 1.0 % (0.0-3.0) Basophils (%) (Auto) 0.9 % (0.0-2.0) Sodium Level 142 MMOL/L (136-145) Potassium Level 4.0 MMOL/L (3.5-5.1) Chloride Level 107 MMOL/L (98-107) Carbon Dioxide Level 28 MMOL/L (21-32) Anion Gap 8 mmol/L (5-15) Blood Urea Nitrogen 12 mg/dL (7-18) Creatinine 1.0 MG/DL (0.55-1.30) Estimat Glomerular Filtration Rate > 60 mL/min (>60) Glucose Level 89 MG/DL (74-106) Calcium Level 8.4 MG/DL (8.5-10.1) L Total Bilirubin 2.0 MG/DL (0.2-1.0) H Direct Bilirubin 0.3 MG/DL (0.0-0.3) Aspartate Amino Transf (AST/SGOT) 172 U/L (15-37) H Alanine Aminotransferase (ALT/SGPT) 42 U/L (12-78) Alkaline Phosphatase 48 U/L (46-116) Total Creatine Kinase 3077 U/L (26-308) H Total Protein 6.0 G/DL (6.4-8.2) L Albumin 3.0 G/DL (3.4-5.0) L Globulin 3.0 g/dL Albumin/Globulin Ratio 1.0 (1.0-2.7) Height (Feet): 5 Height (Inches): 9.00 Weight (Pounds): 175 Medications Current Medications Medications (Trade) Dose Ordered Sig/Sepideh Route PRN Reason Start Time Stop Time Status Last Admin Dose Admin Acetaminophen (Tylenol) 650 mg Q4H PRN ORAL Mild Pain (Pain Scale 1-3) 02/22/20 22:45 03/23/20 22:44 Al Hydroxide/Mg Hydroxide (Mylanta) 30 ml Q4HR PRN ORAL Constipation 02/22/20 22:45 03/23/20 22:44 Amlodipine Besylate (Norvasc) 5 mg DAILY ORAL 02/23/20 09:00 03/24/20 08:59 02/24/20 09:55 Aspirin (ASA) 81 mg DAILY ORAL 02/23/20 09:00 7/2/20 08:59 02/24/20 09:55 Clonidine HCl (Catapres Tab) 0.1 mg EVERY 4 HOURS PRN ORAL SBP>150 02/22/20 22:45 05/22/20 22:44 Donepezil HCl (Aricept) 5 mg QHS ORAL 02/24/20 21:00 03/25/20 20:59 Haloperidol Lactate (Haldol) 5 mg Q6H PRN IM Agitation 02/23/20 17:30 04/08/20 17:29 Heparin Sodium (Porcine) (Heparin 5000 units/ml) 5,000 units EVERY 12 HOURS SUBQ 02/23/20 09:00 04/08/20 08:59 02/24/20 09:57 Metoprolol Tartrate (Lopressor) 12.5 mg Q12HR ORAL 02/24/20 09:00 05/24/20 08:59 02/24/20 09:55 Olanzapine (ZyPREXA) 2.5 mg BEDTIME ORAL 02/24/20 21:00 04/09/20 20:59 Pantoprazole (Protonix) 40 mg DAILY ORAL 02/23/20 09:00 03/24/20 08:59 02/24/20 09:55 Piperacillin Sod/ Tazobactam Sod 3.375 gm/Sodium Chloride 110 ml @ 27.5 mls/hr Q8H IVPB 02/23/20 00:00 03/01/20 00:00 02/24/20 09:55 Potassium Chloride 20 meq/ Sodium Chloride 1,010 ml @ 125 mls/hr Q8H5M IV 02/23/20 16:00 03/24/20 15:59 02/24/20 10:00 Vancomycin HCl (Vanco rx to dose) 1 ea DAILY PRN MISC Per rx protocol 02/22/20 22:45 03/23/20 22:44 Vancomycin/Sodium Chloride 275 ml @ 184 mls/hr Q24H IVPB 02/23/20 04:30 02/28/20 04:29 02/24/20 05:27 Assessment/Plan Problem List: (1) Hand laceration Assessment & Plan: right hand laceration 1cm wound washed and dressings applied depth 1mm and skin edges reapproximate well at hypothenar webspace between thumb no signs of infection will monitor. will hold on suture ICD Codes: S61.419A - Laceration without foreign body of unspecified hand, initial encounter SNOMED: 745405802 (2) Acute renal failure ICD Codes: N17.9 - Acute kidney failure, unspecified SNOMED: 88980528 Qualifiers: Qualified Codes: N17.9 - Acute kidney failure, unspecified (3) Rhabdomyolysis ICD Codes: M62.82 - Rhabdomyolysis SNOMED: 167950334 Qualifiers: (4) Sepsis Assessment & Plan: leukocytosis elevated troponin laceration abx as per ID iv fluids thank you ICD Codes: A41.9 - Sepsis, unspecified organism SNOMED: 31235312 Qualifiers: Qualified Codes: A41.9 - Sepsis, unspecified organism; R65.20 - Severe sepsis without septic shock (5) UTI (urinary tract infection) ICD Codes: N39.0 - Urinary tract infection, site not specified SNOMED: 56832039 Qualifiers: Qualified Codes: N39.0 - Urinary tract infection, site not specified (6) NSTEMI (non-ST elevated myocardial infarction) ICD Codes: I21.4 - Non-ST elevation (NSTEMI) myocardial infarction SNOMED: 29715747 (7) Altered mental status ICD Codes: R41.82 - Altered mental status, unspecified SNOMED: 591283559 Qualifiers: Qualified Codes: R41.82 - Altered mental status, unspecified Paulino Chew February 24, 2020 13:01
--- NOTE | 2020-02-24 15:30 | NUR ---
CASE MANAGEMENT:REVIEW 02/24/20 SI: R/O COVID PNEUMONIA NSTEMI. RHABDOMYOLYSIS 97.6 57 17 102/71 96% ON RA H/H-12.0/33.8 TROPONIN(+) 0.127 TCK+3077 IS: IVF+KCL@125/HR IV ZOSYN Q8HRS ASA PO QD HEPARIN SQ Q12 PROTONIX PO QD NORVASC PO QD : TELEMETRY STATUS DCP: FROM HOME
[2020-02-24 16:00] VITALS: BP 130/72
--- NOTE | 2020-02-24 19:07 | Nephrology Progress Note ---
Assessment/Plan Problem List: (1) Acute renal failure (2) Rhabdomyolysis (3) NSTEMI (non-ST elevated myocardial infarction) (4) Altered mental status (5) Hand laceration (6) Dehydration Plan continue hydration, CK downtrending Subjective ROS Limited/Unobtainable: Yes Objective Objective Last 24 Hour Vital Signs Date Time Temp Pulse Resp B/P (MAP) Pulse Ox O2 Delivery O2 Flow Rate FiO2 02/24/20 16:00 54 02/24/20 16:00 97.6 68 19 130/72 (91) 96 02/24/20 12:00 54 02/24/20 12:00 98.3 58 20 138/75 (96) 98 02/24/20 09:55 63 127/76 02/24/20 09:55 63 127/76 02/24/20 09:00 Room Air 02/24/20 08:00 55 02/24/20 08:00 98.1 63 20 127/76 (93) 99 02/24/20 04:00 58 02/24/20 04:00 97.6 68 19 130/72 (91) 96 02/24/20 00:00 97.2 62 19 134/80 (98) 94 02/24/20 00:00 48 02/23/20 20:00 97.6 59 19 140/71 (94) 96 02/23/20 20:00 85 02/23/20 20:00 Room Air Intake and Output 02/23/20 02/24/20 19:00 07:00 Intake Total 240 ml 125 ml Output Total 200 ml Balance 240 ml -75 ml Intake Oral 240 ml IV Total 125 ml Output Urine Total 200 ml # Voids 2 Laboratory Tests 02/24/20 06:50: White Blood Count 6.6, Red Blood Count 3.61L, Hemoglobin 12.0L, Hematocrit 33.8L , Mean Corpuscular Volume 94, Mean Corpuscular Hemoglobin 33.1H, Mean Corpuscular Hemoglobin Concent 35.4, Red Cell Distribution Width 10.7L, Platelet Count 151, Mean Platelet Volume 5.4L, Neutrophils (%) (Auto) 67.3, Lymphocytes (%) (Auto) 22.3, Monocytes (%) (Auto) 8.5, Eosinophils (%) (Auto) 1.0, Basophils (%) (Auto) 0.9, Sodium Level 142, Potassium Level 4.0, Chloride Level 107, Carbon Dioxide Level 28, Anion Gap 8, Blood Urea Nitrogen 12, Creatinine 1.0, Estimat Glomerular Filtration Rate > 60, Glucose Level 89, Calcium Level 8.4L, Total Bilirubin 2.0H, Direct Bilirubin 0.3, Aspartate Amino Transf (AST/SGOT) 172H, Alanine Aminotransferase (ALT/SGPT) 42, Alkaline Phosphatase 48, Total Creatine Kinase 3077H, Troponin I 0.127H, Total Protein 6.0L, Albumin 3.0L, Globulin 3.0, Albumin/Globulin Ratio 1.0 Height (Feet): 5 Height (Inches): 9.00 Weight (Pounds): 175 General Appearance: lethargic, confused EENT: normal ENT inspection Neck: normal alignment Cardiovascular: regular rhythm Respiratory/Chest: lungs clear Abdomen: soft Extremities: no edema Neurologic: motor weakness Darron Ren MD February 24, 2020 19:07
--- NOTE | 2020-02-24 19:25 | NUR ---
NURSE NOTES: Patient received from RHINA Watt. Patient awake, alert, and responsive. on 2L oxygen per nasal cannula. On bilateral soft restraints, skin assessment and restraints assessment to be done accordingly. IV intact and flushed; IVF running at a prescribed rate. skin is intact with a right hand laceration noted. bed in lowest position, brakes engaged and locked. Bed rails raised x2. Call light placed within reach. Will continue to monitor.
--- NOTE | 2020-02-24 19:34 | NUR ---
HAND-OFF: Report given to RHINA Mead.
[2020-02-24 20:00] VITALS: BP 104/68
[2020-02-24] MEDS: OLANZapine 2.5mg tab ORAL SCH (21:39)
[2020-02-24] MEDS: Donepezil 5mg Tab ORAL SCH (21:39)
[2020-02-25] VITALS: BP 109/65
--- NOTE | 2020-02-25 | Progress Note ---
DATE: 02/24/2020 CARDIOLOGY PROGRESS NOTE SUBJECTIVE: The patient remains on IV fluids. Blood pressure parameters stable. Monitored rhythm sinus with episodes of bradycardia. OBJECTIVE: LUNGS: Clear. CARDIAC: Regular. Normal S1, paradoxically split S2. ABDOMEN: Soft. EXTREMITIES: Trace edema. LABORATORY DATA: White count 6.6, hemoglobin 12. Potassium 4, BUN 12, creatinine 1. Troponin 0.127. CK still 3000. IMPRESSION: 1. Rhabdomyolysis. 2. Acute myocardial ischemia. 3. Conduction system disease with bradyarrhythmias. 4. Resolved tachyarrhythmia. 5. Hypovolemia and dehydration improving. PLAN: 1. Continue hydration. 2. Followup CK levels. 3. Discontinue beta-mirta. 4. Maintain cardiac monitoring. 5. May ultimately require a pacemaker. Alber Kirk M.D. DR: Riki JOB#: [id number] CC:
--- NOTE | 2020-02-25 02:19 | NUR ---
NURSE NOTES: Patient asleep on bed. No signs of acute distress or shortness of breath. On 2L oxygen per nasal cannula. IVF and atb both running at a prescribed rates. Patient dry and comfortable. Dressings on hand also dry and intact. Bed rails raised x3. Bilateral soft restraints in place, skin and restraints assessment done accordingly. Call light placed within reach. Will continue to monitor.
[2020-02-25 04:00] VITALS: BP 102/71
[2020-02-25] MEDS: Potassium Chloride 20 MEQ in 1/2 NS 1000ml 1,000 ML IV SCH ×2 (04:20→14:22)
[2020-02-25 04:22] LABS: ANION GAP 11 mmol/L (5-15); BLOOD UREA NITROGEN 11 mg/dL (7-18); CALCIUM 8.5 MG/DL (8.5-10.1); CARBON DIOXIDE 27 MMOL/L (21-32); CHLORIDE 104 MMOL/L (98-107); CREATINE KINASE 1330 U/L (26-308); POTASSIUM 3.9 MMOL/L (3.5-5.1); SODIUM 142 MMOL/L (136-145)
[2020-02-25] MEDS: Vancomycin 1.25gm/NS Premix q24h IVPB SCH (04:44)
--- NOTE | 2020-02-25 07:11 | NUR ---
HAND-OFF: Report given to RHINA Watt. Endorsed patient's vanco trough results. Renewal of bilateral soft restraints already done. Patient stable.
[2020-02-25 08:00] VITALS: BP 166/91
[2020-02-25] MEDS: Piperacillin/Tazobactam 3.375 GM in NS 110 ML IVPB SCH ×3 (08:00→23:36)
--- NOTE | 2020-02-25 08:02 | NUR ---
NURSE NOTES: Received report from RHINA Mead. Pt lying comfortably in bed. No signs of acute respiratory and cardiac distress. On room air. IV fluids infusing on right AC 20G. Pt on soft wrist restraints. Has condom cath in place. Bed low, side rails up x3 and call light within reach. Will continue plan of care.
--- NOTE | 2020-02-25 08:43 | NUR ---
CASE MANAGEMENT:REVIEW 02/25/20 SI: AMI. RHABDOMYOLYSIS 97.6 57 17 102/71 96% ON RA TCK+1330 IS: IVF+KCL@125/HR IV VANCOMYCIN Q12 IV ZOSYN Q8HRS ZYPREXA PO QHS ARICEPT PO QHS ASA PO QD HEPARIN SQ Q12 PROTONIX PO QD NORVASC PO QD : TELEMETRY STATUS DCP: FROM HOME...LIVES WITH HIS Addendum: 02/25/20 at 0903 by ELAN SOL, UTILITY BILL COLLECTION CLERK UTILITY BILL COLLECTION CLERK ADDENDUM COVID 19 NOT DETECTED
--- NOTE | 2020-02-25 09:04 | General Progress Note ---
Assessment/Plan Assessment/Plan: IMPRESSION: 1. Hypernatremia. 2. Rhabdomyolysis. 3. Possible non-STEMI. 4. Toxic metabolic encephalopathy. 5. Possible sepsis, unclear at this time. 6. Dehydration. 7. Acute renal failure. PLAN improved CK maintain hydration cards clearance will need to assess safety for home impression, plan, and exam edited and reviewed in detail care discussed with RN Subjective Allergies: Coded Allergies: No Known Allergies (Unverified , 02/22/20) Subjective confused unable to reach has baseline dementia Objective Last 24 Hour Vital Signs Date Time Temp Pulse Resp B/P (MAP) Pulse Ox O2 Delivery O2 Flow Rate FiO2 02/25/20 08:00 97.2 68 18 166/91 (116) 96 02/25/20 04:00 57 02/25/20 04:00 97.6 58 17 102/71 (81) 96 02/25/20 00:00 97.4 63 16 109/65 (80) 96 02/25/20 00:00 68 02/24/20 21:00 61 104/68 02/24/20 21:00 Room Air 02/24/20 20:00 97.8 61 17 104/68 (80) 96 02/24/20 20:00 57 02/24/20 16:00 54 02/24/20 16:00 97.6 68 19 130/72 (91) 96 02/24/20 12:00 54 02/24/20 12:00 98.3 58 20 138/75 (96) 98 02/24/20 09:55 63 127/76 02/24/20 09:55 63 127/76 Intake and Output 02/24/20 02/25/20 19:00 07:00 Intake Total 500 ml Output Total 650 ml Balance -150 ml IV Total 500 ml Output Urine Total 650 ml # Voids 1 2 Laboratory Tests 02/25/20 03:02: Sodium Level 142, Potassium Level 3.9, Chloride Level 104, Carbon Dioxide Level 27, Anion Gap 11, Blood Urea Nitrogen 11, Creatinine 1.0, Estimat Glomerular Filtration Rate > 60, Glucose Level 79, Calcium Level 8.5, Total Creatine Kinase 1330H, Vancomycin Level Trough 5.8 Height (Feet): 5 Height (Inches): 9.00 Weight (Pounds): 157 Objective GENERAL: An agitated male. HEENT: Negative. NECK: Supple. LUNGS: Moderate breath sounds. CARDIAC: S1, S2. Regular rate and rhythm. ABDOMEN: Soft. EXTREMITIES: Mild edema. Ruben Marcial MD February 25, 2020 09:04
[2020-02-25] MEDS: Heparin 5000 units/ml inj SUBQ SCH ×2 (10:02→20:25)
[2020-02-25] MEDS: Aspirin Baby 81mg ORAL SCH (10:03)
--- NOTE | 2020-02-25 10:24 | Infectious Diseases Prog Note ---
Assessment/Plan Assessment/Plan antibiotics : vancomycin iv, zosyn A 1. r/o COVID 19 pneumonia 2. Myocardial infarction. 3. Renal failure. P 1. continue iv vancomycin, zosyn 2. We will continue isolation. 3. We will follow up on COVID-19 results. Subjective ROS Limited/Unobtainable: Yes Allergies: Coded Allergies: No Known Allergies (Unverified , 02/22/20) Objective Vital Signs Last 24 Hour Vital Signs Date Time Temp Pulse Resp B/P (MAP) Pulse Ox O2 Delivery O2 Flow Rate FiO2 02/25/20 10:03 60 166/91 02/25/20 08:00 60 02/25/20 08:00 97.2 68 18 166/91 (116) 96 02/25/20 04:00 57 02/25/20 04:00 97.6 58 17 102/71 (81) 96 02/25/20 00:00 97.4 63 16 109/65 (80) 96 02/25/20 00:00 68 02/24/20 21:00 61 104/68 02/24/20 21:00 Room Air 02/24/20 20:00 97.8 61 17 104/68 (80) 96 02/24/20 20:00 57 02/24/20 16:00 54 02/24/20 16:00 97.6 68 19 130/72 (91) 96 02/24/20 12:00 54 02/24/20 12:00 98.3 58 20 138/75 (96) 98 Height (Feet): 5 Height (Inches): 9.00 Weight (Pounds): 157 Microbiology Date/Time Source Procedure Growth Status 02/22/20 14:45 Blood Blood Culture - Preliminary NO GROWTH AFTER 48 HOURS Resulted 02/22/20 14:30 Blood Blood Culture - Preliminary NO GROWTH AFTER 48 HOURS Resulted 02/22/20 15:10 Nasopharynx Coronavirus COVID-19 PCR ([facility]) - Final Complete 02/22/20 15:10 Urine,Clean Catch Urine Culture - Final NO GROWTH AFTER 48 HOURS Complete Laboratory Tests Test 02/25/20 03:02 Sodium Level 142 MMOL/L (136-145) Potassium Level 3.9 MMOL/L (3.5-5.1) Chloride Level 104 MMOL/L (98-107) Carbon Dioxide Level 27 MMOL/L (21-32) Anion Gap 11 mmol/L (5-15) Blood Urea Nitrogen 11 mg/dL (7-18) Creatinine 1.0 MG/DL (0.55-1.30) Estimat Glomerular Filtration Rate > 60 mL/min (>60) Glucose Level 79 MG/DL (74-106) Calcium Level 8.5 MG/DL (8.5-10.1) Total Creatine Kinase 1330 U/L (26-308) H Vancomycin Level Trough 5.8 ug/mL (5.0-12.0) Current Medications Medications (Trade) Dose Ordered Sig/Sepideh Route PRN Reason Start Time Stop Time Status Last Admin Dose Admin Acetaminophen (Tylenol) 650 mg Q4H PRN ORAL Mild Pain (Pain Scale 1-3) 02/22/20 22:45 03/23/20 22:44 Al Hydroxide/Mg Hydroxide (Mylanta) 30 ml Q4HR PRN ORAL Constipation 02/22/20 22:45 03/23/20 22:44 Amlodipine Besylate (Norvasc) 5 mg DAILY ORAL 02/23/20 09:00 03/24/20 08:59 02/25/20 10:03 Aspirin (ASA) 81 mg DAILY ORAL 02/23/20 09:00 04/08/20 08:59 02/25/20 10:03 Clonidine HCl (Catapres Tab) 0.1 mg EVERY 4 HOURS PRN ORAL SBP>150 02/22/20 22:45 05/22/20 22:44 Donepezil HCl (Aricept) 5 mg QHS ORAL 02/24/20 21:00 03/25/20 20:59 02/24/20 21:39 Haloperidol Lactate (Haldol) 5 mg Q6H PRN IM Agitation 02/23/20 17:30 04/08/20 17:29 Heparin Sodium (Porcine) (Heparin 5000 units/ml) 5,000 units EVERY 12 HOURS SUBQ 02/23/20 09:00 04/08/20 08:59 02/25/20 10:02 Olanzapine (ZyPREXA) 2.5 mg BEDTIME ORAL 02/24/20 21:00 04/09/20 20:59 02/24/20 21:39 Pantoprazole (Protonix) 40 mg DAILY ORAL 02/23/20 09:00 03/24/20 08:59 02/25/20 10:02 Piperacillin Sod/ Tazobactam Sod 3.375 gm/Sodium Chloride 110 ml @ 27.5 mls/hr Q8H IVPB 02/23/20 00:00 03/01/20 00:00 02/24/20 23:28 Potassium Chloride 20 meq/ Sodium Chloride 1,010 ml @ 125 mls/hr Q8H5M IV 02/23/20 16:00 03/24/20 15:59 02/25/20 04:20 Vancomycin HCl (Vanco rx to dose) 1 ea DAILY PRN MISC Per rx protocol 02/22/20 22:45 03/23/20 22:44 Vancomycin/Sodium Chloride 275 ml @ 184 mls/hr Q12H IVPB 02/25/20 16:00 03/01/20 15:59 Makenna Figueroa MD February 25, 2020 10:24
[2020-02-25 12:00] VITALS: BP 168/87
--- NOTE | 2020-02-25 13:51 | NUR ---
*-* INSURANCE *-* UPDATED CLINICALS AND REVIEWS HAVE BEEN FAXED TO: [facility] Ref#[id number] # [phone] fax#[phone]
--- NOTE | 2020-02-25 14:05 | Surgery Progress Note ---
Surgery Progress Note Subjective Additional Comments in restraints. tolerating diet staff doing great job with feeding him Objective Last 24 Hour Vital Signs Date Time Temp Pulse Resp B/P (MAP) Pulse Ox O2 Delivery O2 Flow Rate FiO2 02/25/20 13:01 168/87 02/25/20 12:00 77 02/25/20 12:00 97.5 79 18 168/87 (114) 96 02/25/20 10:03 60 166/91 02/25/20 09:00 Room Air 02/25/20 08:00 60 02/25/20 08:00 97.2 68 18 166/91 (116) 96 02/25/20 04:00 57 02/25/20 04:00 97.6 58 17 102/71 (81) 96 02/25/20 00:00 97.4 63 16 109/65 (80) 96 02/25/20 00:00 68 02/24/20 21:00 61 104/68 02/24/20 21:00 Room Air 02/24/20 20:00 97.8 61 17 104/68 (80) 96 02/24/20 20:00 57 02/24/20 16:00 54 02/24/20 16:00 97.6 68 19 130/72 (91) 96 I&O Intake and Output 02/24/20 02/25/20 19:00 07:00 Intake Total 500 ml Output Total 650 ml Balance -150 ml IV Total 500 ml Output Urine Total 650 ml # Voids 1 2 Dressing: saturated Wound: other Cardiovascular: RSR Respiratory: decreased breath sounds Abdomen: soft, present bowel sounds, non-distended Extremities: no cyanosis, other Laboratory Tests Test 02/25/20 03:02 Sodium Level 142 MMOL/L (136-145) Potassium Level 3.9 MMOL/L (3.5-5.1) Chloride Level 104 MMOL/L (98-107) Carbon Dioxide Level 27 MMOL/L (21-32) Anion Gap 11 mmol/L (5-15) Blood Urea Nitrogen 11 mg/dL (7-18) Creatinine 1.0 MG/DL (0.55-1.30) Estimat Glomerular Filtration Rate > 60 mL/min (>60) Glucose Level 79 MG/DL (74-106) Calcium Level 8.5 MG/DL (8.5-10.1) Total Creatine Kinase 1330 U/L (26-308) H Vancomycin Level Trough 5.8 ug/mL (5.0-12.0) Plan Problems: (1) Hand laceration Assessment & Plan: right hand laceration 1cm wound washed and dressings applied depth 1mm and skin edges reapproximate well at hypothenar webspace between thumb no signs of infection will monitor. will hold on suture (2) Acute renal failure (3) Rhabdomyolysis (4) Sepsis Assessment & Plan: leukocytosis elevated troponin laceration abx as per ID iv fluids thank you wbc resolved labs improving d/c planning (5) UTI (urinary tract infection) (6) NSTEMI (non-ST elevated myocardial infarction) (7) Altered mental status Paulino Chew February 25, 2020 14:05
[2020-02-25] MEDS: Vancomycin 1.25gm/NS Premix IVPB SCH (15:50)
[2020-02-25 16:00] VITALS: BP 154/94
--- NOTE | 2020-02-25 19:53 | NUR ---
HAND-OFF: Report given to RHINA Aguirre.
[2020-02-25 20:00] VITALS: BP 143/79
--- NOTE | 2020-02-25 20:03 | NUR ---
NURSE NOTES: Received report from RHINA Watt. Patient is awake, alert and oriented x 1. On cardiac, soft easy chewl, instructed and amenable. Patient is in room air with no shortness of breath or desaturation noted at this time. still pump operator is in placed, shows sinus tachycardia with no chest pain. Patient is unsteady. On fall and aspiration precaution. IV site is on right AC G-20 running fluid of 1/2 ND + 20 meqs KCL @ 125cc/hour and IV site on left forearm g-20 saline lock that is patent and intact. Safety measures are in placed, bed in lowest and lock position. Call light and bedside table within reach. Will continue plan of care.
[2020-02-25] MEDS: Donepezil 5mg Tab ORAL SCH (20:22)
[2020-02-25] MEDS: OLANZapine 2.5mg tab ORAL SCH (20:22)
--- NOTE | 2020-02-25 20:41 | Nephrology Progress Note ---
Assessment/Plan Problem List: (1) Acute renal failure (2) Rhabdomyolysis (3) NSTEMI (non-ST elevated myocardial infarction) (4) Altered mental status (5) Hand laceration (6) Dehydration Plan continue hydration, CK downtrending Subjective ROS Limited/Unobtainable: Yes Objective Objective Last 24 Hour Vital Signs Date Time Temp Pulse Resp B/P (MAP) Pulse Ox O2 Delivery O2 Flow Rate FiO2 02/25/20 16:00 115 02/25/20 16:00 97.6 98 18 154/94 (114) 96 02/25/20 13:01 168/87 02/25/20 12:00 77 02/25/20 12:00 97.5 79 18 168/87 (114) 96 02/25/20 10:03 60 166/91 02/25/20 09:00 Room Air 02/25/20 08:00 60 02/25/20 08:00 97.2 68 18 166/91 (116) 96 02/25/20 04:00 57 02/25/20 04:00 97.6 58 17 102/71 (81) 96 02/25/20 00:00 97.4 63 16 109/65 (80) 96 02/25/20 00:00 68 02/24/20 21:00 61 104/68 02/24/20 21:00 Room Air Intake and Output 02/24/20 02/25/20 19:00 07:00 Intake Total 500 ml Output Total 650 ml Balance -150 ml IV Total 500 ml Output Urine Total 650 ml # Voids 1 2 Laboratory Tests 02/25/20 03:02: Sodium Level 142, Potassium Level 3.9, Chloride Level 104, Carbon Dioxide Level 27, Anion Gap 11, Blood Urea Nitrogen 11, Creatinine 1.0, Estimat Glomerular Filtration Rate > 60, Glucose Level 79, Calcium Level 8.5, Total Creatine Kinase 1330H, Vancomycin Level Trough 5.8 Height (Feet): 5 Height (Inches): 9.00 Weight (Pounds): 157 General Appearance: no apparent distress, alert, confused EENT: normal ENT inspection Neck: normal alignment Cardiovascular: normal rate, regular rhythm Respiratory/Chest: lungs clear Abdomen: non tender Extremities: no edema Neurologic: abnormal service sprinkler helper II-XII Darron Ren MD February 25, 2020 20:41
[2020-02-25] MEDS ORDERED: Tubing IV Secondary IV ONE (20:58)
[2020-02-25] MEDS ORDERED: NS 275ml ONE (20:58)
--- NOTE | 2020-02-25 22:28 | Psych Consult Progress Note ---
Psychiatry Progress Note Psychiatry Progress Note Subjective the pt was disorganized there were multiple items on the floor and the lines were wrapped around his body. the pt was agitated. Medications Current Medications Medications (Trade) Dose Ordered Sig/Sepideh Route PRN Reason Start Time Stop Time Status Last Admin Dose Admin Acetaminophen (Tylenol) 650 mg Q4H PRN ORAL Mild Pain (Pain Scale 1-3) 02/22/20 22:45 03/23/20 22:44 Al Hydroxide/Mg Hydroxide (Mylanta) 30 ml Q4HR PRN ORAL Constipation 02/22/20 22:45 03/23/20 22:44 Amlodipine Besylate (Norvasc) 5 mg DAILY ORAL 02/23/20 09:00 03/24/20 08:59 02/25/20 10:03 Aspirin (ASA) 81 mg DAILY ORAL 02/23/20 09:00 04/08/20 08:59 02/25/20 10:03 Clonidine HCl (Catapres Tab) 0.1 mg EVERY 4 HOURS PRN ORAL SBP>150 02/22/20 22:45 05/22/20 22:44 02/25/20 13:01 Donepezil HCl (Aricept) 5 mg QHS ORAL 02/24/20 21:00 03/25/20 20:59 02/25/20 20:22 Haloperidol Lactate (Haldol) 5 mg Q6H PRN IM Agitation 02/23/20 17:30 04/08/20 17:29 Heparin Sodium (Porcine) (Heparin 5000 units/ml) 5,000 units EVERY 12 HOURS SUBQ 02/23/20 09:00 04/08/20 08:59 02/25/20 20:25 Olanzapine (ZyPREXA) 2.5 mg BEDTIME ORAL 02/24/20 21:00 04/09/20 20:59 02/25/20 20:22 Pantoprazole (Protonix) 40 mg DAILY ORAL 02/23/20 09:00 03/24/20 08:59 02/25/20 10:02 Piperacillin Sod/ Tazobactam Sod 3.375 gm/Sodium Chloride 110 ml @ 27.5 mls/hr Q8H IVPB 02/23/20 00:00 03/01/20 00:00 02/25/20 18:47 Potassium Chloride 20 meq/ Sodium Chloride 1,010 ml @ 125 mls/hr Q8H5M IV 02/23/20 16:00 03/24/20 15:59 02/25/20 14:22 Vancomycin HCl (Vanco rx to dose) 1 ea DAILY PRN MISC Per rx protocol 02/22/20 22:45 03/23/20 22:44 Vancomycin/Sodium Chloride 275 ml @ 184 mls/hr Q12H IVPB 02/25/20 16:00 03/01/20 15:59 02/25/20 15:50 Neurological/Psychiatric: Reports: anxiety, depressed, emotional problems Allergies: Coded Allergies: No Known Allergies (Unverified , 02/22/20) Objective Data Height (Feet): 5 Height (Inches): 9.00 Weight (Pounds): 157 General Appearance: WD/WN, alert, confused, agitated Additional Comments: awake, confused, and disoriented. Mood is agitated. Affect is flat. Thought process, there is a paucity of thought content. Thought content, no suicidal or homicidal ideation. Cognition is impaired. Insight and judgment are impaired. Assessment/Plan [place]: ASSESSMENT: [place] Dementia. Acute encephalopathy. Status: doing well, stable, progressing Assessment/Plan: PLAN: 1. We will start the patient on Zyprexa 2.5 mg at bedtime. 2. Haldol Kevin Sales MD February 25, 2020 22:28
[2020-02-25] MEDS: Haloperidol 5mg/ml Inj IM PRN (22:46)
[2020-02-26] VITALS: BP 146/73
--- NOTE | 2020-02-26 00:30 | Progress Note ---
DATE: 02/25/2020 CARDIOLOGY PROGRESS NOTE SUBJECTIVE: The patient is confused, no apparent distress. Continues on IV fluids. Oral intake marginal. Monitored rhythm sinus and sinus bradycardia, bundle-branch block, no pauses. OBJECTIVE: VITAL SIGNS: Blood pressure 102/71 to 166/91, heart rate 57 to 68, respiratory 16 to 20, no fevers. LUNGS: Clear. CARDIAC: Regular. ABDOMEN: Soft. EXTREMITIES: No edema. LABORATORY DATA: Cultures negative. Sodium 142, potassium 3.9, bicarb 27, BUN 11, creatinine 1. CK down to 1377. IMPRESSION: 1. Rhabdomyolysis, improving. 2. Hypovolemia and dehydration, resolving. 3. Acute myocardial ischemia, stabilized. 4. Conduction system disease with bradyarrhythmias asymptomatic. PLAN: 1. Continue observation off beta-mirta. 2. No emergent indication for pacemaker. 3. IV hydration. 4. Follow up CK levels. 5. We will follow. Alber Kirk M.D. DR: Riki JOB#: [id number] CC:
[2020-02-26] MEDS: Potassium Chloride 20 MEQ in 1/2 NS 1000ml 1,000 ML IV SCH ×4 (00:42→23:51)
[2020-02-26 04:00] VITALS: BP 133/64
[2020-02-26] MEDS: Vancomycin 1.25gm/NS Premix IVPB SCH (04:16)
[2020-02-26 05:59] LABS: ANION GAP 10 mmol/L (5-15); BLOOD UREA NITROGEN 9 mg/dL (7-18); CALCIUM 9.1 MG/DL (8.5-10.1); CARBON DIOXIDE 28 MMOL/L (21-32); CHLORIDE 105 MMOL/L (98-107); CREATINE KINASE 966 U/L (26-308); CREATININE 0.9 MG/DL (0.55-1.30); POTASSIUM 3.7 MMOL/L (3.5-5.1); SODIUM 143 MMOL/L (136-145)
--- NOTE | 2020-02-26 06:30 | NUR ---
NURSE NOTES: Called Dr. Figueroa and left a message. Re-inform her about the Covid result done 02/21 and inquire if she wants to do a re-swab for Covid test. Awaiting for call back.
--- NOTE | 2020-02-26 07:39 | NUR ---
HAND-OFF: Report given to RHINA Martin. Patient is asleep, on stable condition. Plan of care endorsed.
--- NOTE | 2020-02-26 08:08 | NUR ---
NURSE NOTES: pt in bed resting. pt is on bilateral soft restrains. Pt on concrete mixer no signs of cardiac or respiratory distress at this moment. Bed in lowest position and locked call light within reach. Bed alarm is on and side rails up x2. Will continue to monitor pt.
[2020-02-26 08:17] VITALS: BP 133/79
--- NOTE | 2020-02-26 08:47 | General Progress Note ---
Assessment/Plan Status: doing well, stable, progressing Assessment/Plan: IMPRESSION: 1. Hypernatremia. 2. Rhabdomyolysis. 3. Possible non-STEMI. 4. Toxic metabolic encephalopathy. 5. Possible sepsis, unclear at this time. 6. Dehydration. 7. Acute renal failure. PLAN improved CK maintain hydration- reduce rate cards clearance still on antibiotics and isolation will need to assess safety for home/ to assist impression, plan, and exam edited and reviewed in detail care discussed with RN Subjective Allergies: Coded Allergies: No Known Allergies (Unverified , 02/22/20) Subjective confused unable to reach at this point has baseline dementia Objective Last 24 Hour Vital Signs Date Time Temp Pulse Resp B/P (MAP) Pulse Ox O2 Delivery O2 Flow Rate FiO2 02/26/20 08:17 98.8 69 18 133/79 (97) 96 02/26/20 04:00 76 02/26/20 04:00 97.8 68 18 133/64 (87) 96 02/26/20 00:00 97.9 70 18 146/73 (97) 96 02/26/20 00:00 71 02/25/20 21:00 Room Air 02/25/20 20:00 96 02/25/20 20:00 97.6 95 18 143/79 (100) 95 02/25/20 16:00 115 02/25/20 16:00 97.6 98 18 154/94 (114) 96 02/25/20 13:01 168/87 02/25/20 12:00 77 02/25/20 12:00 97.5 79 18 168/87 (114) 96 02/25/20 10:03 60 166/91 02/25/20 09:00 Room Air Intake and Output 02/25/20 02/26/20 19:00 07:00 Intake Total 480 ml Output Total 700 ml Balance -220 ml Intake Oral 480 ml Output Urine Total 700 ml # Voids 3 3 # Bowel Movements 2 1 Laboratory Tests 02/26/20 04:30: Sodium Level 143, Potassium Level 3.7, Chloride Level 105, Carbon Dioxide Level 28, Anion Gap 10, Blood Urea Nitrogen 9, Creatinine 0.9, Estimat Glomerular Filtration Rate > 60, Glucose Level 82, Calcium Level 9.1, Total Creatine Kinase 966H Height (Feet): 5 Height (Inches): 9.00 Weight (Pounds): 157 Objective GENERAL: An agitated male. HEENT: Negative. NECK: Supple. LUNGS: Moderate breath sounds. CARDIAC: S1, S2. Regular rate and rhythm. ABDOMEN: Soft. EXTREMITIES: Mild edema. Ruben Marcial MD February 26, 2020 08:47
[2020-02-26] MEDS: Piperacillin/Tazobactam 3.375 GM in NS 110 ML IVPB SCH ×3 (10:27→23:50)
[2020-02-26] MEDS: Aspirin Baby 81mg ORAL SCH (10:28)
[2020-02-26] MEDS: Heparin 5000 units/ml inj SUBQ SCH ×2 (10:30→20:54)
[2020-02-26 12:00] VITALS: BP 130/67
--- NOTE | 2020-02-26 12:13 | NUR ---
CASE MANAGEMENT:REVIEW 02/26/20 SI: AMI. RHABDOMYOLYSIS COVID 19 NOT DETECTED 98.8 69 18 133/79 96% ON RA TCK+966 IS: IVF+KCL@75/HR IV VANCOMYCIN Q12 IV ZOSYN Q8HRS ZYPREXA PO QHS ARICEPT PO QHS ASA PO QD HEPARIN SQ Q12 PROTONIX PO QD NORVASC PO QD : TELEMETRY STATUS DCP: FROM HOME...LIVES WITH HIS PLAN: CONTINUE HYDRATION HOPE TO DISCHARGE HOME TOMORROW
--- NOTE | 2020-02-26 12:17 | NUR ---
DISCHARGE PLANNING PATIENT IS FROM HOME AND THE PLAN IS TO RETURN HOME UPON DISCHARGE DELPHI DEVELOPER SPOKE WITH PATIENT'S YESTERDAY HOPE TO DISCHARGE HOME TOMORROW 02/27/20 Addendum: 02/26/20 at 1359 by ELAN SOL LVN LVN NOT READY FOR DISCHARGE TODAY ~ TCK+966....CONTINUE IV HYDRATION
--- NOTE | 2020-02-26 12:19 | Nephrology Progress Note ---
Assessment/Plan Problem List: (1) Acute renal failure (2) Rhabdomyolysis (3) NSTEMI (non-ST elevated myocardial infarction) (4) Altered mental status (5) Hand laceration (6) Dehydration Plan continue hydration, CK downtrending Subjective ROS Limited/Unobtainable: Yes Objective Objective Last 24 Hour Vital Signs Date Time Temp Pulse Resp B/P (MAP) Pulse Ox O2 Delivery O2 Flow Rate FiO2 02/26/20 10:28 69 133/79 02/26/20 08:17 98.8 69 18 133/79 (97) 96 02/26/20 04:00 76 02/26/20 04:00 97.8 68 18 133/64 (87) 96 02/26/20 00:00 97.9 70 18 146/73 (97) 96 02/26/20 00:00 71 02/25/20 21:00 Room Air 02/25/20 20:00 96 02/25/20 20:00 97.6 95 18 143/79 (100) 95 02/25/20 16:00 115 02/25/20 16:00 97.6 98 18 154/94 (114) 96 02/25/20 13:01 168/87 Intake and Output 02/25/20 02/26/20 19:00 07:00 Intake Total 480 ml Output Total 700 ml Balance -220 ml Intake Oral 480 ml Output Urine Total 700 ml # Voids 3 3 # Bowel Movements 2 1 Laboratory Tests 02/26/20 04:30: Sodium Level 143, Potassium Level 3.7, Chloride Level 105, Carbon Dioxide Level 28, Anion Gap 10, Blood Urea Nitrogen 9, Creatinine 0.9, Estimat Glomerular Filtration Rate > 60, Glucose Level 82, Calcium Level 9.1, Total Creatine Kinase 966H Height (Feet): 5 Height (Inches): 9.00 Weight (Pounds): 157 General Appearance: no apparent distress, confused EENT: normal ENT inspection Neck: normal alignment Cardiovascular: regular rhythm Respiratory/Chest: lungs clear Extremities: no edema Neurologic: disoriented Darron Ren MD February 26, 2020 12:19
--- NOTE | 2020-02-26 13:41 | NUR ---
*-* INSURANCE *-* UPDATED CLINICALS AND REVIEWS HAVE BEEN FAXED TO: [facility] Ref#[id number] # [phone] fax#[phone]
--- NOTE | 2020-02-26 13:48 | Infectious Diseases Prog Note ---
Assessment/Plan Assessment/Plan A 1. Cough COVID 19 X 1 : negative 2. Myocardial infarction. 3. Renal failure resolved 4. Dementia P 1. Discontinue iv vancomycin, Continue Zosyn 2. We will continue isolation. 3. We will follow up on COVID-19 results. Subjective ROS Limited/Unobtainable: Yes Constitutional: Denies: fever Neurologic: Reports: other - on restraint Allergies: Coded Allergies: No Known Allergies (Unverified , 02/22/20) Objective Vital Signs Last 24 Hour Vital Signs Date Time Temp Pulse Resp B/P (MAP) Pulse Ox O2 Delivery O2 Flow Rate FiO2 02/26/20 12:00 104 02/26/20 10:28 69 133/79 02/26/20 09:00 Room Air 02/26/20 08:17 98.8 69 18 133/79 (97) 96 02/26/20 08:00 60 02/26/20 04:00 76 02/26/20 04:00 97.8 68 18 133/64 (87) 96 02/26/20 00:00 97.9 70 18 146/73 (97) 96 02/26/20 00:00 71 02/25/20 21:00 Room Air 02/25/20 20:00 96 02/25/20 20:00 97.6 95 18 143/79 (100) 95 02/25/20 16:00 115 02/25/20 16:00 97.6 98 18 154/94 (114) 96 Height (Feet): 5 Height (Inches): 9.00 Weight (Pounds): 157 General Appearance: no acute distress HEENT: mucous membranes moist Respiratory/Chest: no respiratory distress Cardiovascular: normal rate Abdomen: soft, non tender Extremities: no edema Neurologic/Psychiatric: other - sleeping Laboratory Tests Test 02/26/20 04:30 Sodium Level 143 MMOL/L (136-145) Potassium Level 3.7 MMOL/L (3.5-5.1) Chloride Level 105 MMOL/L (98-107) Carbon Dioxide Level 28 MMOL/L (21-32) Anion Gap 10 mmol/L (5-15) Blood Urea Nitrogen 9 mg/dL (7-18) Creatinine 0.9 MG/DL (0.55-1.30) Estimat Glomerular Filtration Rate > 60 mL/min (>60) Glucose Level 82 MG/DL (74-106) Calcium Level 9.1 MG/DL (8.5-10.1) Total Creatine Kinase 966 U/L (26-308) H Current Medications Medications (Trade) Dose Ordered Sig/Sepideh Route PRN Reason Start Time Stop Time Status Last Admin Dose Admin Acetaminophen (Tylenol) 650 mg Q4H PRN ORAL Mild Pain (Pain Scale 1-3) 02/22/20 22:45 03/23/20 22:44 Al Hydroxide/Mg Hydroxide (Mylanta) 30 ml Q4HR PRN ORAL Constipation 02/22/20 22:45 03/23/20 22:44 Amlodipine Besylate (Norvasc) 5 mg DAILY ORAL 02/23/20 09:00 03/24/20 08:59 02/26/20 10:28 Aspirin (ASA) 81 mg DAILY ORAL 02/23/20 09:00 04/08/20 08:59 02/26/20 10:28 Clonidine HCl (Catapres Tab) 0.1 mg EVERY 4 HOURS PRN ORAL SBP>150 02/22/20 22:45 05/22/20 22:44 02/25/20 13:01 Donepezil HCl (Aricept) 5 mg QHS ORAL 02/24/20 21:00 03/25/20 20:59 02/25/20 20:22 Haloperidol Lactate (Haldol) 5 mg Q6H PRN IM Agitation 02/23/20 17:30 04/08/20 17:29 02/25/20 22:46 Heparin Sodium (Porcine) (Heparin 5000 units/ml) 5,000 units EVERY 12 HOURS SUBQ 02/23/20 09:00 04/08/20 08:59 02/26/20 10:30 Olanzapine (ZyPREXA) 2.5 mg BEDTIME ORAL 02/24/20 21:00 04/09/20 20:59 02/25/20 20:22 Pantoprazole (Protonix) 40 mg DAILY ORAL 02/23/20 09:00 03/24/20 08:59 02/26/20 10:27 Piperacillin Sod/ Tazobactam Sod 3.375 gm/Sodium Chloride 110 ml @ 27.5 mls/hr Q8H IVPB 02/23/20 00:00 03/01/20 00:00 02/26/20 10:27 Potassium Chloride 20 meq/ Sodium Chloride 1,010 ml @ 75 mls/hr [id number] IV 02/26/20 09:01 03/24/20 09:00 02/26/20 09:01 Vancomycin HCl (Vanco rx to dose) 1 ea DAILY PRN MISC Per rx protocol 02/22/20 22:45 03/23/20 22:44 Vancomycin/Sodium Chloride 275 ml @ 184 mls/hr Q12H IVPB 02/25/20 16:00 03/01/20 15:59 02/26/20 04:16 Sukhjinder Mcpherson MD February 26, 2020 13:48
[2020-02-26 16:00] VITALS: BP 137/60
--- NOTE | 2020-02-26 16:01 | Surgery Progress Note ---
Surgery Progress Note Subjective Symptoms: improved, tolerating diet, voiding well, passing flatus Objective Last 24 Hour Vital Signs Date Time Temp Pulse Resp B/P (MAP) Pulse Ox O2 Delivery O2 Flow Rate FiO2 02/26/20 12:00 104 02/26/20 10:28 69 133/79 02/26/20 09:00 Room Air 02/26/20 08:17 98.8 69 18 133/79 (97) 96 02/26/20 08:00 60 02/26/20 04:00 76 02/26/20 04:00 97.8 68 18 133/64 (87) 96 02/26/20 00:00 97.9 70 18 146/73 (97) 96 02/26/20 00:00 71 02/25/20 21:00 Room Air 02/25/20 20:00 96 02/25/20 20:00 97.6 95 18 143/79 (100) 95 I&O Intake and Output 02/25/20 02/26/20 19:00 07:00 Intake Total 480 ml Output Total 700 ml Balance -220 ml Intake Oral 480 ml Output Urine Total 700 ml # Voids 3 3 # Bowel Movements 2 1 Dressing: saturated Wound: other Cardiovascular: RSR Respiratory: decreased breath sounds Abdomen: soft, present bowel sounds Extremities: no edema, no tenderness, no cyanosis, pulses, other Laboratory Tests Test 02/26/20 04:30 Sodium Level 143 MMOL/L (136-145) Potassium Level 3.7 MMOL/L (3.5-5.1) Chloride Level 105 MMOL/L (98-107) Carbon Dioxide Level 28 MMOL/L (21-32) Anion Gap 10 mmol/L (5-15) Blood Urea Nitrogen 9 mg/dL (7-18) Creatinine 0.9 MG/DL (0.55-1.30) Estimat Glomerular Filtration Rate > 60 mL/min (>60) Glucose Level 82 MG/DL (74-106) Calcium Level 9.1 MG/DL (8.5-10.1) Total Creatine Kinase 966 U/L (26-308) H Plan Problems: (1) Hand laceration Assessment & Plan: right hand laceration 1cm wound washed and dressings applied depth 1mm and skin edges reapproximate well at hypothenar webspace between thumb no signs of infection will monitor. will hold on suture (2) Acute renal failure (3) Rhabdomyolysis (4) Sepsis Assessment & Plan: leukocytosis elevated troponin laceration abx as per ID iv fluids thank you wbc resolved labs improving d/c planning (5) UTI (urinary tract infection) (6) NSTEMI (non-ST elevated myocardial infarction) (7) Altered mental status Paulino Chew February 26, 2020 16:01
--- NOTE | 2020-02-26 18:15 | NUR ---
NURSE NOTES: urine output 900ml and took off condom cath.
--- NOTE | 2020-02-26 19:11 | NUR ---
HAND-OFF: Report given to SHENA/RHINA, PT IN STABLE CONDITION ON RESTRAINS.
--- NOTE | 2020-02-26 19:31 | NUR ---
NURSE NOTES: Received report from RHINA Martin. Patient is awake, alert and oriented x 1. On cardiac, soft easy chew, able to swallow whole pill without aspiration noted. Patient is on room air with no shortness of breath or desaturation noted at this time. top collar maker is in placed, shows sinus rhythm with BBB and no chest pain. Patient is unsteady. On fall and aspiration precaution. IV site is on left kwabena G-22 running fluid of 1/2 Ns + 20 meqs KCL @ 75 cc/hour that is patent and intact. Patient is incontinent x 2, condom catheter is in placed. Safety measures are in placed, bed in lowest and lock position. Call light and bedside table within reach. Will continue plan of care.
[2020-02-26 20:00] VITALS: BP 147/80
[2020-02-26] MEDS: OLANZapine 2.5mg tab ORAL SCH (20:54)
[2020-02-26] MEDS: Donepezil 5mg Tab ORAL SCH (20:54)
--- NOTE | 2020-02-26 22:58 | NUR ---
NURSE NOTES: Called Dr. Kirk and left a message informing him about his order for his patient to do stat Venous duplex. Spoke to "Lane" from radiology dept. and he states that most of the time, they don't do stat procedure at night for patients that is still ruling out for Covid but most likely they're going to do it tomorrow morning instead. Awaiting for call back from Dr. Kirk. Will follow up and endorse it to morning Nurse on duty.
[2020-02-27] VITALS: BP 144/77
--- NOTE | 2020-02-27 02:30 | Progress Note ---
DATE: 02/26/2020 SUBJECTIVE: The patient remains withdrawn, but more alert. Remaining on IV fluids. Oral intake is fair. PHYSICAL EXAMINATION: VITAL SIGNS: Blood pressure 137/60, heart rate ranging from 57 to 122, respiratory rate 18, and afebrile. Monitored rhythm sinus with bundle-branch block. With agitation or activities, the heart rate is increased with sinus tachycardia noted. LUNGS: Diminished breath sounds. No wheezing. CARDIAC: Regular rhythm and rate. Normal S1, S2 with a 1/6 systolic murmur at base. ABDOMEN: Soft. EXTREMITIES: No edema. LABORATORY DATA: Laboratories today potassium 3.7, BUN 9, creatinine 0.9, and CK down to 966. IMPRESSION: 1. Hypovolemia and dehydration, resolved. 2. Rhabdomyolysis, improved. 3. Acute myocardial ischemia, recovered. 4. 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 PLAN: Continue hydration. Observing heart rate off beta-mirta with mobilization. Venous duplex scan. Discharge planning. Alber Kirk M.D. DR: RUBIA JOB#: [id number] CC:
--- NOTE | 2020-02-27 03:00 | Progress Note ---
DATE: 02/26/2020 HISTORY OF PRESENT ILLNESS: The patient continues to be disorganized, confused and easily agitated. The patient is difficult to redirect. He attempts to come out of the room. MENTAL STATUS EXAMINATION: Alert and oriented times self. Mood is agitated. Affect is flat. Thought process is concrete. Thought content, no suicidal, homicidal ideation. Cognition is impaired. ASSESSMENT: Dementia with behavior disturbance. PLAN: 1. The patient was placed on bilateral soft restraints. 2. Haldol IM p.r.n. 3. Olanzapine 2.5 mg at bedtime. Kevin Rodríguez M.D. DR: HOLLY JOB#: [id number] CC:
[2020-02-27 04:00] VITALS: BP 133/53
[2020-02-27 04:30] LABS: ANION GAP 9 mmol/L (5-15); BLOOD UREA NITROGEN 9 mg/dL (7-18); CARBON DIOXIDE 28 MMOL/L (21-32); CHLORIDE 105 MMOL/L (98-107); CREATINE KINASE 410 U/L (26-308); POTASSIUM 3.5 MMOL/L (3.5-5.1); SODIUM 142 MMOL/L (136-145)
--- NOTE | 2020-02-27 07:31 | NUR ---
HAND-OFF: Report given to RHINA Martin. Patient is in stable condition, still confused but able to follow commands. No chestpain nor desaturation noted, plan of care endorsed.
--- NOTE | 2020-02-27 07:44 | NUR ---
NURSE NOTES: pt in bed attempting to get out of bed, pt on restrains. Food tray at bedside. Pt is awake, is not complaining of donell, on director of cardiac cath lab no signs of cardiac or respiratory distress at this time. Bed in lowest position and locked, call light within reach, side rails up for safety, alarm on. will continue to monitor pt.
[2020-02-27 08:19] VITALS: BP 154/76
[2020-02-27] MEDS: Piperacillin/Tazobactam 3.375 GM in NS 110 ML IVPB SCH (09:11)
[2020-02-27] MEDS: Aspirin Baby 81mg ORAL SCH (09:11)
[2020-02-27] MEDS: Heparin 5000 units/ml inj SUBQ SCH ×2 (09:12→21:00)
--- NOTE | 2020-02-27 09:51 | NUR ---
*-* INSURANCE *-* UPDATED CLINICALS AND REVIEWS HAVE BEEN FAXED TO: [facility] Ref#[id number] # [phone] fax#[phone]
--- NOTE | 2020-02-27 10:28 | Infectious Diseases Prog Note ---
Assessment/Plan Assessment/Plan antibiotics : zosyn A 1. leucocytosis resolved 2. COVID 19 test negative 2. Myocardial infarction. 3. Renal failure resolved P 1. d/c zosyn 2. We will continue isolation. 3. observe off antibiotics Subjective ROS Limited/Unobtainable: Yes Allergies: Coded Allergies: No Known Allergies (Unverified , 02/22/20) Objective Vital Signs Last 24 Hour Vital Signs Date Time Temp Pulse Resp B/P (MAP) Pulse Ox O2 Delivery O2 Flow Rate FiO2 02/27/20 09:11 80 154/76 02/27/20 08:19 98.3 80 20 154/76 (102) 100 02/27/20 04:00 72 02/27/20 04:00 98.0 75 18 133/53 (79) 97 02/27/20 00:00 98.1 72 18 144/77 (99) 97 02/27/20 00:00 69 02/26/20 21:00 Room Air 02/26/20 20:00 97.5 78 16 147/80 (102) 96 02/26/20 20:00 83 02/26/20 16:00 122 02/26/20 16:00 98.1 67 18 137/60 (85) 96 02/26/20 12:00 104 02/26/20 12:00 98.7 57 20 130/67 (88) 97 02/26/20 10:28 69 133/79 Height (Feet): 5 Height (Inches): 9.00 Weight (Pounds): 157 Laboratory Tests Test 02/27/20 03:52 Sodium Level 142 MMOL/L (136-145) Potassium Level 3.5 MMOL/L (3.5-5.1) Chloride Level 105 MMOL/L (98-107) Carbon Dioxide Level 28 MMOL/L (21-32) Anion Gap 9 mmol/L (5-15) Blood Urea Nitrogen 9 mg/dL (7-18) Creatinine 1.0 MG/DL (0.55-1.30) Estimat Glomerular Filtration Rate > 60 mL/min (>60) Glucose Level 100 MG/DL (74-106) Calcium Level 9.0 MG/DL (8.5-10.1) Total Creatine Kinase 410 U/L (26-308) H Current Medications Medications (Trade) Dose Ordered Sig/Sepideh Route PRN Reason Start Time Stop Time Status Last Admin Dose Admin Acetaminophen (Tylenol) 650 mg Q4H PRN ORAL Mild Pain (Pain Scale 1-3) 02/22/20 22:45 03/23/20 22:44 Al Hydroxide/Mg Hydroxide (Mylanta) 30 ml Q4HR PRN ORAL Constipation 02/22/20 22:45 03/23/20 22:44 Amlodipine Besylate (Norvasc) 5 mg DAILY ORAL 02/23/20 09:00 03/24/20 08:59 02/27/20 09:11 Aspirin (ASA) 81 mg DAILY ORAL 02/23/20 09:00 04/08/20 08:59 02/27/20 09:11 Clonidine HCl (Catapres Tab) 0.1 mg EVERY 4 HOURS PRN ORAL SBP>150 02/22/20 22:45 05/22/20 22:44 02/25/20 13:01 Haloperidol Lactate (Haldol) 5 mg Q6H PRN IM Agitation 02/23/20 17:30 04/08/20 17:29 02/25/20 22:46 Heparin Sodium (Porcine) (Heparin 5000 units/ml) 5,000 units EVERY 12 HOURS SUBQ 02/23/20 09:00 04/08/20 08:59 02/27/20 09:12 Olanzapine (ZyPREXA) 2.5 mg BEDTIME ORAL 02/24/20 21:00 04/09/20 20:59 02/26/20 20:54 Pantoprazole (Protonix) 40 mg DAILY ORAL 02/23/20 09:00 03/24/20 08:59 02/27/20 09:12 Piperacillin Sod/ Tazobactam Sod 3.375 gm/Sodium Chloride 110 ml @ 27.5 mls/hr Q8H IVPB 02/23/20 00:00 03/01/20 00:00 02/27/20 09:11 Potassium Chloride 20 meq/ Sodium Chloride 1,010 ml @ 75 mls/hr [id number] IV 02/26/20 09:01 03/24/20 09:00 02/26/20 23:51 Makenna Figueroa MD February 27, 2020 10:28
--- NOTE | 2020-02-27 10:40 | NUR ---
CASE MANAGEMENT:REVIEW 02/27/20 SI: AMI. RHABDOMYOLYSIS COVID 19 NOT DETECTED 98.3 80 20 154/76 100% ON RA TCK+410 IS:IV KCL/NS @75ML/HR NORVASC PO QD HEPARIN SQ Q12 PROTONIX PO QD ZYPREXA PO QHS ARICEPT PO QHS ASA PO QD : TELEMETRY STATUS DCP: HOME WHEN STABLE PLAN: 2ND [id number] (SWAB COLLECTED 02/25) VENOUS DUPLEX-PENDING OBSERVE OFF IV ABX
--- NOTE | 2020-02-27 11:31 | General Progress Note ---
Assessment/Plan Status: doing well, stable, progressing Assessment/Plan: IMPRESSION: 1. Hypernatremia. 2. Rhabdomyolysis. 3. Possible non-STEMI. 4. Toxic metabolic encephalopathy. 5. Possible sepsis, unclear at this time. 6. Dehydration. 7. Acute renal failure. PLAN improved CK maintain hydration- reduce rate cards clearance still on antibiotics and isolation will need to assess safety for home/ dc planning impression, plan, and exam edited and reviewed in detail care discussed with RN Subjective Allergies: Coded Allergies: No Known Allergies (Unverified , 02/22/20) Subjective confused unable to reach at this point has baseline dementia Objective Last 24 Hour Vital Signs Date Time Temp Pulse Resp B/P (MAP) Pulse Ox O2 Delivery O2 Flow Rate FiO2 02/27/20 09:11 80 154/76 02/27/20 08:19 98.3 80 20 154/76 (102) 100 02/27/20 08:00 78 02/27/20 04:00 72 02/27/20 04:00 98.0 75 18 133/53 (79) 97 02/27/20 00:00 98.1 72 18 144/77 (99) 97 02/27/20 00:00 69 02/26/20 21:00 Room Air 02/26/20 20:00 97.5 78 16 147/80 (102) 96 02/26/20 20:00 83 02/26/20 16:00 122 02/26/20 16:00 98.1 67 18 137/60 (85) 96 02/26/20 12:00 104 02/26/20 12:00 98.7 57 20 130/67 (88) 97 Intake and Output 02/26/20 02/27/20 19:00 07:00 Intake Total 195 ml 749 ml Output Total 1200 ml 2 ml Balance -1005 ml 747 ml Intake Oral 120 ml IV Total 75 ml 749 ml Output Urine Total 1200 ml 2 ml # Voids 3 2 # Bowel Movements 1 Laboratory Tests 02/27/20 03:52: Sodium Level 142, Potassium Level 3.5, Chloride Level 105, Carbon Dioxide Level 28, Anion Gap 9, Blood Urea Nitrogen 9, Creatinine 1.0, Estimat Glomerular Filtration Rate > 60, Glucose Level 100, Calcium Level 9.0, Total Creatine Kinase 410H Height (Feet): 5 Height (Inches): 9.00 Weight (Pounds): 157 Objective GENERAL: An agitated male. HEENT: Negative. NECK: Supple. LUNGS: Moderate breath sounds. CARDIAC: S1, S2. Regular rate and rhythm. ABDOMEN: Soft. EXTREMITIES: Mild edema. Ruben Marcial MD February 27, 2020 11:31
--- NOTE | 2020-02-27 11:49 | Diagnostic Imaging Report ---
EXAM: ULTRASOUND Venous Duplex Scan Feliberto Leg CLINICAL HISTORY: Leg pain and edema. COMPARISON: None TECHNIQUE: Doppler examination include grayscale images obtained with and without compression, and color and spectral doppler analysis. FINDINGS: Doppler examination shows normal spontaneity, phasicity, compressibility in the bilateral lower extremities. There is no thrombus identified by grayscale. Normal color and spectral flow is identified. There is no evidence of valvular incompetency or insufficiency. IMPRESSION: UNREMARKABLE VENOUS DUPLEX.
[2020-02-27 12:00] VITALS: BP 150/67
--- NOTE | 2020-02-27 13:07 | Surgery Progress Note ---
Surgery Progress Note Subjective Symptoms: improved, tolerating diet, voiding well, passing flatus Objective Last 24 Hour Vital Signs Date Time Temp Pulse Resp B/P (MAP) Pulse Ox O2 Delivery O2 Flow Rate FiO2 02/27/20 09:11 80 154/76 02/27/20 09:00 Room Air 02/27/20 08:19 98.3 80 20 154/76 (102) 100 02/27/20 08:00 78 02/27/20 04:00 72 02/27/20 04:00 98.0 75 18 133/53 (79) 97 02/27/20 00:00 98.1 72 18 144/77 (99) 97 02/27/20 00:00 69 02/26/20 21:00 Room Air 02/26/20 20:00 97.5 78 16 147/80 (102) 96 02/26/20 20:00 83 02/26/20 16:00 122 02/26/20 16:00 98.1 67 18 137/60 (85) 96 I&O Intake and Output 02/26/20 02/27/20 19:00 07:00 Intake Total 195 ml 749 ml Output Total 1200 ml 2 ml Balance -1005 ml 747 ml Intake Oral 120 ml IV Total 75 ml 749 ml Output Urine Total 1200 ml 2 ml # Voids 3 2 # Bowel Movements 1 Dressing: saturated Wound: clean Cardiovascular: RSR Respiratory: clear Abdomen: soft, non-tender, present bowel sounds Extremities: no cyanosis Laboratory Tests Test 02/27/20 03:52 Sodium Level 142 MMOL/L (136-145) Potassium Level 3.5 MMOL/L (3.5-5.1) Chloride Level 105 MMOL/L (98-107) Carbon Dioxide Level 28 MMOL/L (21-32) Anion Gap 9 mmol/L (5-15) Blood Urea Nitrogen 9 mg/dL (7-18) Creatinine 1.0 MG/DL (0.55-1.30) Estimat Glomerular Filtration Rate > 60 mL/min (>60) Glucose Level 100 MG/DL (74-106) Calcium Level 9.0 MG/DL (8.5-10.1) Total Creatine Kinase 410 U/L (26-308) H Plan Problems: (1) Hand laceration Assessment & Plan: right hand laceration 1cm wound washed and dressings applied depth 1mm and skin edges reapproximate well at hypothenar webspace between thumb no signs of infection will monitor. will hold on suture (2) Acute renal failure (3) Rhabdomyolysis (4) Sepsis Assessment & Plan: leukocytosis elevated troponin laceration abx as per ID iv fluids thank you wbc resolved labs improving d/c planning (5) UTI (urinary tract infection) (6) NSTEMI (non-ST elevated myocardial infarction) (7) Altered mental status Paulino Chew February 27, 2020 13:07
--- NOTE | 2020-02-27 14:48 | Nephrology Progress Note ---
Assessment/Plan Problem List: (1) Acute renal failure (2) Rhabdomyolysis (3) NSTEMI (non-ST elevated myocardial infarction) (4) Altered mental status (5) Hand laceration (6) Dehydration Plan continue hydration, CK downtrending Subjective ROS Limited/Unobtainable: Yes Objective Objective Last 24 Hour Vital Signs Date Time Temp Pulse Resp B/P (MAP) Pulse Ox O2 Delivery O2 Flow Rate FiO2 02/27/20 09:11 80 154/76 02/27/20 09:00 Room Air 02/27/20 08:19 98.3 80 20 154/76 (102) 100 02/27/20 08:00 78 02/27/20 04:00 72 02/27/20 04:00 98.0 75 18 133/53 (79) 97 02/27/20 00:00 98.1 72 18 144/77 (99) 97 02/27/20 00:00 69 02/26/20 21:00 Room Air 02/26/20 20:00 97.5 78 16 147/80 (102) 96 02/26/20 20:00 83 02/26/20 16:00 122 02/26/20 16:00 98.1 67 18 137/60 (85) 96 Intake and Output 02/26/20 02/27/20 18:59 06:59 Intake Total 120 ml 824 ml Output Total 1200 ml 2 ml Balance -1080 ml 822 ml Intake Oral 120 ml IV Total 824 ml Output Urine Total 1200 ml 2 ml # Voids 3 2 # Bowel Movements 1 Laboratory Tests 02/27/20 03:52: Sodium Level 142, Potassium Level 3.5, Chloride Level 105, Carbon Dioxide Level 28, Anion Gap 9, Blood Urea Nitrogen 9, Creatinine 1.0, Estimat Glomerular Filtration Rate > 60, Glucose Level 100, Calcium Level 9.0, Total Creatine Kinase 410H Height (Feet): 5 Height (Inches): 9.00 Weight (Pounds): 157 General Appearance: alert, confused EENT: normal ENT inspection Neck: normal alignment Cardiovascular: normal rate Respiratory/Chest: lungs clear Abdomen: non tender Neurologic: box press operator II-XII grossly normal Darron Ren MD February 27, 2020 14:48
--- NOTE | 2020-02-27 15:15 | NUR ---
CASE MANAGEMENT: NOTE CM ASK DR WOODS FOR DC ORDER NO DC AT THIS TIME CK LEVEL STILL ELEVATED CONTINUE TO HYDRATE PATIENT CM WILL F/U ON SUNDAY IF PATIENT IS STILL HERE AT [facility]
[2020-02-27 16:00] VITALS: BP 154/59
[2020-02-27] MEDS ORDERED: Potassium Chloride 20 MEQ in 1/2 NS 1000ml 1,000 ML IV SCH (16:00)
--- NOTE | 2020-02-27 19:33 | NUR ---
HAND-OFF: Report given to Rowe/ rn, pt is in stable condition.
--- NOTE | 2020-02-27 19:40 | NUR ---
NURSE NOTES: Received report from Veronica Montalvo RN. Pt in bed, soft wrist restraints bilaterally, denies pain, in stable condition. Bed in lowest position, bed alarm armed, call light within reach. Will continue close monitoring and plan of care.
[2020-02-27 20:00] VITALS: BP 150/91
[2020-02-27] MEDS: OLANZapine 2.5mg tab ORAL SCH (21:00)
--- NOTE | 2020-02-27 22:37 | Psych Consult Progress Note ---
Psychiatry Progress Note Psychiatry Progress Note Medications Current Medications Medications (Trade) Dose Ordered Sig/Sepideh Route PRN Reason Start Time Stop Time Status Last Admin Dose Admin Acetaminophen (Tylenol) 650 mg Q4H PRN ORAL Mild Pain (Pain Scale 1-3) 02/22/20 22:45 03/23/20 22:44 Al Hydroxide/Mg Hydroxide (Mylanta) 30 ml Q4HR PRN ORAL Constipation 02/22/20 22:45 03/23/20 22:44 Amlodipine Besylate (Norvasc) 5 mg DAILY ORAL 02/23/20 09:00 03/24/20 08:59 02/27/20 09:11 Aspirin (ASA) 81 mg DAILY ORAL 02/23/20 09:00 04/08/20 08:59 02/27/20 09:11 Clonidine HCl (Catapres Tab) 0.1 mg EVERY 4 HOURS PRN ORAL SBP>150 02/22/20 22:45 05/22/20 22:44 02/27/20 18:27 Haloperidol Lactate (Haldol) 5 mg Q6H PRN IM Agitation 02/23/20 17:30 04/08/20 17:29 02/25/20 22:46 Heparin Sodium (Porcine) (Heparin 5000 units/ml) 5,000 units EVERY 12 HOURS SUBQ 02/23/20 09:00 04/08/20 08:59 02/27/20 09:12 Olanzapine (ZyPREXA) 2.5 mg BEDTIME ORAL 02/24/20 21:00 04/09/20 20:59 02/27/20 21:00 Pantoprazole (Protonix) 40 mg DAILY ORAL 02/23/20 09:00 03/24/20 08:59 02/27/20 09:12 Potassium Chloride 20 meq/ Sodium Chloride 1,010 ml @ 50 mls/hr [id number] IV 02/27/20 16:00 03/28/20 15:59 02/27/20 16:05 Neurological/Psychiatric: Reports: anxiety, emotional problems Allergies: Coded Allergies: No Known Allergies (Unverified , 02/22/20) Objective Data Height (Feet): 5 Height (Inches): 9.00 Weight (Pounds): 157 General Appearance: alert, confused, agitated Additional Comments: Alert and oriented times self. Mood is agitated. Affect is flat. Thought process is concrete. Thought content, no suicidal, homicidal ideation. Cognition is impaired. Assessment/Plan [place] I: Dementia with behavior disturbance. Status: doing well, stable, progressing Assessment/Plan: PLAN: 1. We will start the patient on Zyprexa 2.5 mg at bedtime. 2. Haldol IM Kevin Guerra MD February 27, 2020 22:37
[2020-02-28] VITALS: BP 118/82
[2020-02-28] MEDS: Haloperidol 5mg/ml Inj IM PRN (01:36)
--- NOTE | 2020-02-28 02:25 | NUR ---
TRANSFER TO FLOOR: Patient transferred to [facility]. Pt in stable condition. Report given to RHINA Jiménez. Belongings and medications given to Lui Jiménez RN. Endorsed plan of care.
[2020-02-28] MEDS ORDERED: Potassium Chloride 20 MEQ in 1/2 NS 1000ml 1,000 ML IV SCH (02:30)
--- NOTE | 2020-02-28 02:30 | NUR ---
NURSE NOTES: Pt. received from RHINA Castillo. Pt. AAOx1, on room air, no indications of respiratory distress and no indications of pain. No IV access, will attempt to establish. Bilateral soft wrist restraints, movement and sensation intact, pulses palpable. Belongings list checked and verified, pt. oriented to room and use of call light, proper fall risk precautions implemented. Bed is low and locked, side rails x3 up, bed alarm active, and call light in reach. Will continue to monitor.
[2020-02-28] MEDS ORDERED: Haloperidol 5mg/ml Inj IM PRN (02:45)
--- NOTE | 2020-02-28 03:15 | Progress Note ---
DATE: 02/27/2020 CARDIOLOGY PROGRESS NOTE SUBJECTIVE: The patient remains on IV fluids. More alert. He had episodes of atrial fibrillation last night. OBJECTIVE: VITAL SIGNS: Blood pressure 133/53, heart rate 75, respirations 18. LUNGS: Clear. CARDIAC: Regular. Normal S1, S2. A 1/6 systolic murmur at base. ABDOMEN: Soft. EXTREMITIES: No edema. LABORATORY DATA: Sodium is 142, potassium 3.5, BUN 9, creatinine 1. CK down to 410. IMPRESSION: 1. Acute myocardial ischemia. 2. Dehydration. 3. Hypernatremia. 4. Sepsis. 5. Rhabdomyolysis. 6. Hypokalemia. 7. Resolved lactic acidosis. 8. Resolved renal failure. 9. Paroxysmal atrial fibrillation. PLAN: 1. Continue hydration. 2. Replace potassium. 3. Antiplatelet therapy. 4. Avoid tight blood pressure control. 5. No anticoagulation in view of increased risk to benefit ratio. Alber Kirk M.D. DR: LASHAE JOB#: [id number] CC:
--- NOTE | 2020-02-28 03:15 | NUR ---
NURSE NOTES: IV inserted right forearm 24g, connected to fluids. Wound pictures taken and dressings changed. Condom catheter applied. Will continue with plan of care.
[2020-02-28 04:00] VITALS: BP 147/77
--- NOTE | 2020-02-28 06:17 | NUR ---
RD ASSESSMENT & RECOMMENDATIONS SEE CARE ACTIVITY FOR COMPLETE ASSESSMENT DAILY ESTIMATED NEEDS: Needs based on cardiac/ 71kg 25-30 kcals/kg 8437-7862 total kcals 1-1.3 g protein/kg 71-92 g total protein 25-30 mL/kg 5631-8611 total fluid mLs NUTRITION DIAGNOSIS: Altered nutrition related lab values R/T cardiac hx as evidenced by episodes of elev BPs, on hypotensive agents, w/ dx of acute myocardial ischemia w/ elev total creatine kinase 3077 -> 410. CURRENT DIET:Cardiac, soft easy chew PO DIET RECOMMENDATIONS: LOW NA/ texture as tolerated ADDITIONAL RECOMMENDATIONS: * Calibrated bedscale wt * Monitor Po intake, w/ variable intake at this time -> rec liberalizing diet to Low Na -> Will add Ensure Enlive once daily for now, monitor acceptance need to increase
[2020-02-28 07:11] LABS: ANION GAP 12 mmol/L (5-15); BLOOD UREA NITROGEN 9 mg/dL (7-18); CALCIUM 8.9 MG/DL (8.5-10.1); CARBON DIOXIDE 27 MMOL/L (21-32); CHLORIDE 104 MMOL/L (98-107); CREATINE KINASE 421 U/L (26-308); CREATININE 0.9 MG/DL (0.55-1.30); POTASSIUM 3.9 MMOL/L (3.5-5.1); SODIUM 143 MMOL/L (136-145)
--- NOTE | 2020-02-28 07:43 | NUR ---
HAND-OFF: Report given to RHINA Campuzano and RHINA Long. Addendum: 02/28/20 at 0745 by Tino Quispe RN Report given to RHINA Campuzano and RHINA Rosario
--- NOTE | 2020-02-28 07:45 | NUR ---
NURSE NOTES: Received patient lying in hospital bed in supine position sleeping. Patient has restraints to B wrists with no s/s of skin breakdown to areas and showing adequate circulation. Pt has IV fluid of NS with KCl 20meq running at 75 ml/hr via R forearm pIV. No s/s of respiratory distress noted at this time. Will continue POC.
[2020-02-28 08:00] VITALS: BP 149/94
--- NOTE | 2020-02-28 08:58 | General Progress Note ---
Assessment/Plan Status: doing well, stable, progressing Assessment/Plan: IMPRESSION: 1. Hypernatremia. 2. Rhabdomyolysis. 3. Possible non-STEMI. 4. Toxic metabolic encephalopathy. 5. Possible sepsis, unclear at this time. 6. Dehydration. 7. Acute renal failure. PLAN all improved off antibiotics may dc home today impression, plan, and exam edited and reviewed in detail care discussed with RN Subjective Allergies: Coded Allergies: No Known Allergies (Unverified , 02/22/20) Subjective confused lives with has baseline dementia Objective Last 24 Hour Vital Signs Date Time Temp Pulse Resp B/P (MAP) Pulse Ox O2 Delivery O2 Flow Rate FiO2 02/28/20 04:00 97.6 85 16 147/77 (100) 95 02/28/20 00:00 97.9 79 19 118/82 (94) 96 02/28/20 00:00 82 02/27/20 21:00 Room Air 02/27/20 20:00 98.8 99 20 150/91 (110) 96 02/27/20 18:27 154/63 02/27/20 16:00 93 02/27/20 16:00 99.0 86 18 154/59 (90) 96 02/27/20 12:00 74 02/27/20 12:00 96.8 56 18 150/67 (94) 96 02/27/20 09:11 80 154/76 02/27/20 09:00 Room Air Intake and Output 02/27/20 02/28/20 19:00 07:00 Intake Total 350 ml Balance 350 ml Intake Oral 100 ml IV Total 250 ml # Voids 3 Laboratory Tests 02/28/20 04:45: Sodium Level 143, Potassium Level 3.9, Chloride Level 104, Carbon Dioxide Level 27, Anion Gap 12, Blood Urea Nitrogen 9, Creatinine 0.9, Estimat Glomerular Filtration Rate > 60, Glucose Level 105, Calcium Level 8.9, Magnesium Level 2.1 , Total Creatine Kinase 421H Height (Feet): 5 Height (Inches): 9.00 Weight (Pounds): 157 Objective GENERAL: An agitated male. HEENT: Negative. NECK: Supple. LUNGS: Moderate breath sounds. CARDIAC: S1, S2. Regular rate and rhythm. ABDOMEN: Soft. EXTREMITIES: Mild edema. Ruben Marcial MD February 28, 2020 08:58
[2020-02-28] MEDS ORDERED: Heparin 5000 units/ml inj SUBQ SCH (09:00)
[2020-02-28] MEDS ORDERED: Aspirin Baby 81mg ORAL SCH (09:00)
--- NOTE | 2020-02-28 09:17 | NUR ---
NURSE NOTES: RN contacted Dr. Marcial who ordered discharge order and relayed creatinine kinase level was 410 yesterday and 421 today and patient is still Covid PUI with negative for the 1st test and waiting for the 2nd test result. Dr. Marcial said patient can be discharged with home isolation. RN spoke to patient's sister in law since Patient's 's phone got disconnected and can be reached with her sister.She said she can pick him up around 11am. she will drive here without patient's who is @ work.
[2020-02-28 10:21] VITALS: BP 149/94
--- NOTE | 2020-02-28 10:47 | Surgery Progress Note ---
Surgery Progress Note Subjective Additional Comments no acute events labs reviewed exam stable comfortable Objective Last 24 Hour Vital Signs Date Time Temp Pulse Resp B/P (MAP) Pulse Ox O2 Delivery O2 Flow Rate FiO2 02/28/20 10:21 69 149/94 02/28/20 04:00 97.6 85 16 147/77 (100) 95 02/28/20 00:00 97.9 79 19 118/82 (94) 96 02/28/20 00:00 82 02/27/20 21:00 Room Air 02/27/20 20:00 98.8 99 20 150/91 (110) 96 02/27/20 18:27 154/63 02/27/20 16:00 93 02/27/20 16:00 99.0 86 18 154/59 (90) 96 02/27/20 12:00 74 02/27/20 12:00 96.8 56 18 150/67 (94) 96 I&O Intake and Output 02/27/20 02/28/20 19:00 07:00 Intake Total 350 ml Balance 350 ml Intake Oral 100 ml IV Total 250 ml # Voids 3 Dressing: other Wound: other Drains: other Cardiovascular: RSR Respiratory: decreased breath sounds Abdomen: soft, non-tender, present bowel sounds Extremities: no cyanosis Laboratory Tests Test 02/28/20 04:45 Sodium Level 143 MMOL/L (136-145) Potassium Level 3.9 MMOL/L (3.5-5.1) Chloride Level 104 MMOL/L (98-107) Carbon Dioxide Level 27 MMOL/L (21-32) Anion Gap 12 mmol/L (5-15) Blood Urea Nitrogen 9 mg/dL (7-18) Creatinine 0.9 MG/DL (0.55-1.30) Estimat Glomerular Filtration Rate > 60 mL/min (>60) Glucose Level 105 MG/DL (74-106) Calcium Level 8.9 MG/DL (8.5-10.1) Magnesium Level 2.1 MG/DL (1.8-2.4) Total Creatine Kinase 421 U/L (26-308) H Plan Problems: (1) Hand laceration Assessment & Plan: right hand laceration 1cm wound washed and dressings applied depth 1mm and skin edges reapproximate well at hypothenar webspace between thumb no signs of infection will monitor. will hold on suture (2) Acute renal failure (3) Rhabdomyolysis (4) Sepsis Assessment & Plan: leukocytosis elevated troponin laceration abx as per ID iv fluids thank you wbc resolved labs improving d/c planning (5) UTI (urinary tract infection) (6) NSTEMI (non-ST elevated myocardial infarction) (7) Altered mental status Paulino Chew February 28, 2020 10:47
--- NOTE | 2020-02-28 12:30 | NUR ---
NURSE NOTES: Patient was discharged to home accompanied by his Nneka Cruz and her sister via private car. Prior to discharge,patient's condition was stable.V/S stable, afebrile,denied pain or discomfort. IV and ID were removed. No s/s of infection on IV removal site. skin assessment done, no skin break or pressure sore.No swelling on upper and lower extremities. Discharge instruction including fall prevention,home isolation and monitoring urine output and color and to resume home medications. Home meds brought by patient given to patient and . All belongings were checked and given to patient's family except patient's varma in [facility] safe. RN contacted supervisor tumbling and rolling [place] and notified that patient is confused alert and oriented x1-2 and he has money of $3400.00 in the safe with receipt. Per warehouse consultant,patient's family needs to bring documentation that can proof patient and 's relationship to release money.RN was told from warehouse consultant to give receipt to family member and they can get money when they bring documentation.RN explained to the family in [place] since family don't speak [place]. They fully understood the situation and will be back with documentation. Given receipt to Nneka Cruz. RN escorted patient to car without issues.
[2020-02-28] MEDS ORDERED: OLANZapine 2.5mg tab ORAL SCH (21:00)
--- NOTE | 2020-02-29 03:15 | Progress Note ---
DATE: 02/28/2020 CARDIOLOGY PROGRESS NOTE SUBJECTIVE: No chest pain, no shortness of breath. Intake fair. Electrolytes improved. CK normalized. OBJECTIVE: VITAL SIGNS: Blood pressure 147/77, pulse 85, respirations 16. LUNGS: Clear. CARDIAC: Regular. Normal S1, S2 with a fourth heart sound. ABDOMEN: Soft. No edema. LABORATORY DATA: Sodium 143, potassium 3.9, bicarb 27, BUN 9, creatinine 0.9. CK 420. IMPRESSION: Improved. PLAN: 1. Outpatient follow up. 2. Encourage fluid intake. 3. Cardiovascular regimen reviewed with the patient and attending physician. 4. Outpatient followup offered. Alber Kirk M.D. DR: RADHA JOB#: [id number] CC:
--- NOTE | 2020-03-02 11:45 | Discharge Summary ---
Discharge Summary Discharge Summary _ DATE OF ADMISSION: 02/22/2020 DATE OF DISCHARGE: 02/28/2020 DISCHARGED BY: Dr. Marcial REASON FOR ADMISSION: 74 years old male was found altered on the street and was brought for further evaluation. No fevers. Blood sugar 142. He denied nausea, vomiting or diarrhea. He denied dysuria. Upon evaluation patient was tachycardic , tachypneic, no fevers. Pulse oximetry was stable on room air. Right hand laceration noted. Laboratory work-up revealed leukocytosis WBC 13.8, hemoglobin 13.2, hematocrit 37.3, platelet count 192. Sodium 146. BUN 52, creatinine 3.0. Lactic acid 4.5. Glucose 139. Total bili 1.9 , direct bili 0.3, AST 177 ALT 45. LDH 338. Lipase 107. Troponin elevated 0.122. Pro BNP 1156. EKG revealed sinus tachycardia with right bundle branch block . CRP 2.2 . CK 7559. Urinalysis revealed +2 protein ,+1 leukocyte esterase, moderate bacteria , borderline pyuria . urine toxicology screen was negative. D-dimer 0.66 . Chest x-ray revealed subsegmental atelectasis in the medial lung bases. CT of the head revealed no acute intracranial finding. 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 Generalized cerebral parenchymal volume loss, likely age-related. In emergency department patient received tetanus shot, pancultured, started on IV fluids , empiric antibiotics. Patient also received Lovenox and metoprolol and subsequently admitted for further management. Patient was swabbed for COVID 19. Patient admitted to telemetry floor for further management. CONSULTANTS: [employer] plans intelligence officer chief ID specialist Dr. Figueroa meat stringer Dr. Ren superintendent marine/oncologist surgery Dr. Toussaint psychiatrist Dr. Rodríguez [facility] COURSE: Patient initially admitted to telemetry floor. Serial troponin monitored. EKG revealed no acute ischemic changes. er [employer] plans intelligence officer chief patient had acute myocardial ischemia. Antiplatelet therapy with aspirin and beta-blockade provided. Echocardiogram demonstrated preserved ejection fraction of 55%. No evidence of wall motion abnormality. Moderate aortic insufficiency. Blood pressure was managed with calcium channel mirta and beta-mirta. DVT and GI prophylaxis provided. Patient started on empiric antibiotic as per ID specialist recommendation. Blood cultures negative. Urine culture negative. SARS COV-2 by PCR on 02/21 and 5/21 was not detected. Leukocytosis resolved. ID specialist recommended to observe patient off antibiotics. Patient was hydrated with IV hydration . CK trended down, prior to discharge 421. Renal parameters and electrolytes were closely monitored, nephrotoxic's were avoided . BUN from 52 down to 9 and creatinine from 3.0 down to 0.9. Venous duplex bilateral lower extremity revealed no evidence of acute DVT. Supplemental oxygen was on board as needed to keep pulse oximetry above 92%. Pulse oximetry remained stable on room air. Patient initially presented with right hand laceration 1 cm. Wound care provided as per surgeon recommendation. No need for repair , no signs of infection as per surgeon. Wound care provided as per surgeon recommendations. Psychiatric medication regimen was optimized as epr psychiatrist. Patient clinically stabilized and was ready for discharge home. FINAL DIAGNOSES: Acute renal failure -resolved Rhabdomyolysis- improved Acute myocardial ischemia Possible NSTEMI Suspected [id number] out Toxic metabolic encephalopathy Possible sepsis Conduction system disease Paroxysmal atrial fibrillation Lactic acidosis- resolved Dementia with behavioral disturbances Hand laceration Dehydration DISCHARGE MEDICATIONS: See Medication Reconciliation list. DISCHARGE INSTRUCTIONS: Patient was discharged home. Patient to follow-up with her primary care provider in 1 to 2 weeks via phone given COVID 2019 pandemic. I have been assigned to dictate discharge summary for this account. I was not involved in the patient's management. Michaelle Silva NP March 02, 2020 11:45
--- NOTE | 2020-03-02 14:23 | NUR ---
*-* INSURANCE *-* UPDATED CLINICALS AND REVIEWS HAVE BEEN FAXED TO: [facility] Ref#[id number] # [phone] fax#[phone] Addendum: 03/02/20 at 1425 by CRISTOPHER MARINELLI CM DISCHARGE SUMMARY ALSO FAXED
== END 2020-02-28 12:57 | disposition home or self-care (01) | DRG 871 ==
LOC: EDBD 14:36 → EEVIPCON 15:14 → EMR 15:14 → EDBEDREQ 20:08 → 2E 20:12 → 4E 02-28 02:30
DX: A41.9 Sepsis, unspecified organism (principal); I21.4 Non-ST elevation (NSTEMI) myocardial infarction; G92 Toxic encephalopathy; M62.82 Rhabdomyolysis; N17.9 Acute kidney failure, unspecified; E87.0 Hyperosmolality and hypernatremia; F01.51 Vascular dementia, unspecified severity, with behavioral disturbance; E86.0 Dehydration; S61.411A Laceration without foreign body of right hand, initial encounter; X58.XXXA Exposure to other specified factors, initial encounter; E86.1 Hypovolemia
CPT/HCPCS: 36415; 70450; 71045; 80048; 80053; 80061; 80202; 80307; 81003; 82248; 82550; 82728; 83605; 83615; 83690; 83735; 83880; 84100; 84443; 84484; 84550; 85025; 85379; 85610; 85730; 86140; 87040; 87086; 87635; 90471; 90715; 93005; 93306; 93970; 96361; 96365; 96367; 96368; 96372; 96375; 99291; 99292; J1580; J7030; J8499